=== PATIENT | female | born 1955 | race Two or more races ===

== ENCOUNTER 2020-10-19 17:49 | Outpatient (REF) | payer MEDICARE, BC, SELFPAY | END 2020-10-19 17:50 | disposition home or self-care (01) | LOC: HO.LNP 17:49 | PROVIDERS: Visit Provider Nurse Practitioner Family | DX: J02.9 Acute pharyngitis, unspecified (principal); Z20.828 Contact with and (suspected) exposure to other viral communicable diseases | CPT/HCPCS: U0003 ==

== ENCOUNTER 2021-08-04 09:30 | Outpatient (REF) | payer MEDICARE, BC, SELFPAY ==
[2021-08-04 11:38] LABS: Estimated Average Glucose 117 mg/dL; Hemoglobin A1c % 5.7 %
[2021-08-04 12:10] LABS: Alanine Aminotransferase 15 U/L (0-31); Albumin Level 4.3 g/dL (3.5-5.0); Alkaline Phosphatase 124 U/L (39-117); Anion Gap 11 (12-20); Aspartate Amino Transferase 20 U/L (5-31); Bilirubin Total 0.5 mg/dL (0.0-1.0); Blood Urea Nitrogen 11 mg/dL (9-16); Carbon Dioxide 26 mmol/L (22-29); Chloride 107 mmol/L (96-108); Cholesterol 178 mg/dL; Estimated Glomerular Filt Rate > 60; Glucose Fasting 96 mg/dL (60-99); HDL Cholesterol 46 mg/dL; LDL Cholesterol Calculated 108 mg/dl; Potassium 4.6 mmol/L (3.3-5.1); Sodium 139 mmol/L (135-145); Triglycerides 123 mg/dL
[2021-08-04 12:11] LABS: TSH reflex Free T4 1.04 uIU/mL (0.32-4.0)
[2021-08-04 12:29] LABS: Microalbum/Creatinine Ratio Ur 7.3 ug/mg cr
== END 2021-08-04 09:31 | disposition home or self-care (01) ==
LOC: HO.HMGCLDS 09:30
PROVIDERS: PCP Internal Medicine; Visit Provider Internal Medicine
DX: E03.9 Hypothyroidism, unspecified (principal); E78.5 Hyperlipidemia, unspecified; R73.9 Hyperglycemia, unspecified
CPT/HCPCS: 36415; 80053; 80061; 82043; 83036; 84443

== ENCOUNTER 2022-05-10 09:32 | Outpatient (REF) | payer MEDICARE, BC, SELFPAY ==
[2022-05-10 11:23] LABS: MANUAL DIFF FLAG NO
[2022-05-10 11:34] LABS: Basophils Absolute Auto 0.1 X10*3/uL (0.0-0.2); Basophils Percent Auto 0.9 % (0-2); Eosinophils Absolute Auto 0.2 X10*3/uL (0.0-0.4); Eosinophils Percent Auto 3.9 % (0-4); Hematocrit 34.2 % (37.0-47.0); Hemoglobin 11.5 g/dl (12.0-16.0); Imm Gran Abs Auto 0.01 X10*3/uL (0.00-0.03); Imm Gran Pct Auto 0.2 % (0.0-0.4); Immature Retic Fraction 19.1 % (3.0-15.9); Lymphocytes Percent Auto 37.1 % (20-40); Mean Corpuscular HGB Conc 33.6 g/dl (31.0-35.0); Mean Corpuscular Hemoglobin 29.7 pg (27.0-33.0); Mean Corpuscular Volume 88.4 fL (80.0-98.0); Mean Platelet Volume 10.7 fL (9.4-12.3); Monocytes Absolute Auto 0.5 X10*3/uL (0.1-1.2); Monocytes Percent Auto 10.1 % (2-11); Neutrophils Absolute Auto 2.5 x10*3/uL (2.0-8.3); Neutrophils Percent Auto 47.8 % (45-73); Platelet Count 241 X10*3/uL (160-400); Red Blood Count 3.87 X10*6/uL (4.20-5.50); Red Cell Distribution Width 13.7 % (11.0-16.0); Retic HGB Equivalent 32.4 pg (30.0-35.0); Reticulocyte Percent 1.3 % (0.5-1.8); Reticulocytes Absolute 0.052 X10*6/uL (0.026-0.095); White Blood Count 5.3 X10*3/uL (4.8-10.8)
[2022-05-10 12:00] LABS: Iron 68 mcg/dL (30-160); Percent Iron Saturation 20 % (15-50); Total Iron Binding Capacity 334 mcg/dL (228-428); Unsaturated Iron Binding 266 ug/dL
== END 2022-05-10 09:33 | disposition home or self-care (01) ==
LOC: HO.HMGCLDS 09:32
PROVIDERS: PCP Internal Medicine; Visit Provider Internal Medicine
DX: D64.9 Anemia, unspecified (principal)
CPT/HCPCS: 36415; 83540; 85025; 85045

== ENCOUNTER 2023-07-25 13:01 | Outpatient (REF) | payer MEDICARE, BC, SELFPAY | END 2023-07-25 13:02 | disposition home or self-care (01) | LOC: HO.MRI 13:01 | PROVIDERS: PCP Internal Medicine; Visit Provider Internal Medicine | DX: Z13.89 Encounter for screening for other disorder (principal) ==

== ENCOUNTER 2023-08-21 12:00 | Outpatient (AMB) | payer MEDICARE, BC, SELFPAY ==
[2023-08-21 12:06] VITALS: BP 126/70; PULSE 70; O2SAT 98; BMI 33.0
--- NOTE | 2023-08-21 12:06 | MHC.PC.OV ---
Vital Signs 08/21/23 12:06 Height 5 ft 3 in Weight 186 lb 6 oz BMI 33.0 BP 126/70 Blood Pressure Location Rt brachial Position Sitting Pulse 70 Pulse Source Pulse Oximeter Pulse Oximetry (%) 98 Oxygen Delivery Method Room Air Intake Visit Reasons: 3m follow up Intake Note: pt had labs and a Breast MRI at [facility] that are scanned in pt's chart Allergies dapagliflozin [From [facility]] Adverse Reaction (Intermediate, Verified 08/21/23 12:09) LIGHTHEADNESS Medication List - Last Reconciled 08/21/23 by Marielle Price MD albuterol sulfate 90 mcg/actuation (ProAir HFA) 2 puffs inhalation QID PRN atorvastatin 40 mg PO DAILY blood sugar diagnostic (FreeStyle Lite Strips) test blood sugar once a day blood-glucose meter (FreeStyle Lite Meter kit) As directed cholecalciferol (vitamin D3) 25 mcg PO DAILY citalopram 20 mg PO DAILY famotidine 40 mg PO BID flash glucose sensor (FreeStyle An 2 Sensor kit) As directed fluticasone propionate 110 mcg/actuation (Flovent HFA) 2 puffs inhalation BID lancets (FreeStyle Lancets) test blood sugar once a day levothyroxine (Synthroid) 75 mcg PO DAILY lorazepam 0.5 mg PO DAILY PRN lubiprostone 0 mcg PO melatonin 6 mg PO BEDTIME PRN mometasone 0.1% 1 appl topical DAILY omega-3 fatty acids (Fish Oil) PO omeprazole 40 mg PO BID semaglutide (Ozempic) 0.25 mg (0.368 mL) subcut QWEEK Tobacco use date assessed: 08/21/23 Fall risk assessment: No Falls in past year Last assessed Fall Risk: 08/21/23 Dental Screening Dental Screen Date: 08/21/23 Did you have a dental visit in the last 12 months?: Yes Did you have a dental problem in the last 6 months where you did not have access to dental care?: No Was dental information given to patient?: Patient has dentist HPI 3m follow up HPI Details Pt presents for f/u hyperlipid, DM 2, hypothyroid, stable on meds. Patient complains of insomnia and has been taking melatonin with some relief. She states zolpidem has not been helpful. Depression is stable on citalopram. Patient is leaving for [place] in the beginning of October for 6 months and she will go on a cruise in October to celebrate her 49th anniversary. [facility] Medical History Asthma Chronic depression Cough GERD (gastroesophageal reflux disease) History of mammogram Hyperglycemia Hyperlipidemia Hypothyroidism Neck pain Shoulder pain, bilateral Sleep apnea Surgical History Status post right knee replacement H/O colonoscopy History of esophagogastroduodenoscopy (EGD) No pertinent past surgical history Family History Mother Breast cancer Osteoporosis Social History Housing: House Alcohol intake: current Alcohol intake frequency: holidays/special occasions only Patient Tobacco Use Status: Never used Tobacco e-Cigarette/Vaping Use: Never Used Current occupational status: retired Cognitive needs: No Hearing needs: No Vision needs: Yes Questionnaire Thrive Questionnaire Date Thrive assessed: 05/25/23 ROSIE-7 AMB Questionnaire ROSIE-7 Date ROSIE - 7 assessed: 05/25/23 Source: Developed by Drs. Philip Rivas, Carri Rowley, Frank Aparicio and colleagues, with an educational marilia from [employer]. Review of Systems Const All systems reviewed & are unremarkable except as noted in HPI and below Reports no additional complaints Eyes Reports no additional complaints ENT Reports no additional complaints Card Reports no additional complaints Resp Reports no additional complaints GI Reports no additional complaints Reports no additional complaints Physical exam (Primary Care) Vital Signs: Last Vital Signs Pulse 70 08/21/23 12:06 BP 138/70 08/21/23 12:06 Pulse Ox 98 08/21/23 12:06 Oxygen Delivery Method Room Air 08/21/23 12:06 BMI result Body Mass Index 33.0 Tobacco/Smoking Status: Tobacco use Status Tobacco use date assessed 08/21/23 08/21/23 12:12 Patient Tobacco Use Status Never used Tobacco 08/21/23 12:07 e-Cigarette/Vaping Use Never Used 08/21/23 12:07 Thrive Assessment: Date of Thrive Assessment Date Thrive assessed 05/25/23 08/21/23 12:07 Const General: no acute distress HENMT Ears: hearing grossly normal bilaterally Mouth: Normal oral and palatal mucosa present Eyes General: appearance normal, both eyes and all related structures Neck Neck: Yes no lymphadenopathy and Yes supple Resp Effort & Inspection: normal respiratory effort Auscultation: clear to auscultation bilaterally Cardio Rhythm: regular rhythm Heart sounds: S1 normal heart sound present and S2 normal heart sound present GI Inspection: Yes normal to inspection Palpation (GI): Soft to palpation Percussion: Yes normal to percussion Auscultation: normal bowel sounds Assessment and Plan Assessment & Plan (1) Hx of breast lump: Comment: R breast 2 mm mass on MR 9/13, US ordered Code(s): Z87.898 - Personal history of other specified conditions Plan: right breast ultrasound at [facility] to be ordered to evaluate for the mass found on the MRI (2) DM type 2 (diabetes mellitus, type 2): Comment: Farxiga caused lightheadedness Code(s): E11.9 - Type 2 diabetes mellitus without complications Plan: A1c is 5.7, this insurance did not cover Ozempic. She will try Trulicity 0.75 mg weekly and increase as tolerated (3) Hypothyroidism: Code(s): E03.9 - Hypothyroidism, unspecified Plan: Continue levothyroxine (4) GERD (gastroesophageal reflux disease): Code(s): K21.9 - Gastro-esophageal reflux disease without esophagitis Plan: Continue PPI (5) Asthma: Code(s): J45.909 - Unspecified asthma, uncomplicated Plan: Continue Flovent (6) Insomnia: Comment: Zolpidem not affective Code(s): G47.00 - Insomnia, unspecified Plan: Sleep hygiene discussed with the patient. Trazodone 50 mg q.h.s. is prescribed to take on as needed basis only. Orders: Orders US breast RT complete Today Z87.898 - Personal history of other specified conditions Comprehensive [place]. Panel Fast 7 Months E03.9 - Hypothyroidism, unspecified, E11.9 - Type 2 diabetes mellitus without complications, K21.9 - Gastro-esophageal reflux disease without esophagitis, R73.9 - Hyperglycemia, unspecified, Z00.00 - Encounter for general adult medical examination without abnormal findings Complete Blood Count Auto Diff 7 Months E03.9 - Hypothyroidism, unspecified, E11.9 - Type 2 diabetes mellitus without complications, K21.9 - Gastro-esophageal reflux disease without esophagitis, R73.9 - Hyperglycemia, unspecified, Z00.00 - Encounter for general adult medical examination without abnormal findings Hemoglobin A1c 7 Months E03.9 - Hypothyroidism, unspecified, E11.9 - Type 2 diabetes mellitus without complications, K21.9 - Gastro-esophageal reflux disease without esophagitis, R73.9 - Hyperglycemia, unspecified, Z00.00 - Encounter for general adult medical examination without abnormal findings Lipid Panel 7 Months E03.9 - Hypothyroidism, unspecified, E11.9 - Type 2 diabetes mellitus without complications, K21.9 - Gastro-esophageal reflux disease without esophagitis, R73.9 - Hyperglycemia, unspecified, Z00.00 - Encounter for general adult medical examination without abnormal findings Microalbumin, Random (w Creat) 7 Months E03.9 - Hypothyroidism, unspecified, E11.9 - Type 2 diabetes mellitus without complications, K21.9 - Gastro-esophageal reflux disease without esophagitis, R73.9 - Hyperglycemia, unspecified, Z00.00 - Encounter for general adult medical examination without abnormal findings TSH reflex Free T4 7 Months E03.9 - Hypothyroidism, unspecified, E11.9 - Type 2 diabetes mellitus without complications, K21.9 - Gastro-esophageal reflux disease without esophagitis, R73.9 - Hyperglycemia, unspecified, Z00.00 - Encounter for general adult medical examination without abnormal findings Medications: New dulaglutide (Trulicity) 0.75 mg (0.5 mL) subcut QWEEK 4 mL 3RF trazodone 50 mg PO BEDTIME PRN 30 tabs 1RF sleep Discontinued semaglutide (Ozempic) for 4 weeks then 0.5 mg qd Discontinued Reason: Duplicate 0.25 mg (0.368 mL) subcut QWEEK 3 mL 2RF Coding Level of Care Code Est Pt Level 4 (10402) Diagnoses Hx of breast lump Z87.898 DM type 2 (diabetes mellitus, type 2) E11.9 Hypothyroidism E03.9 GERD (gastroesophageal reflux disease) K21.9 Asthma J45.909 Insomnia G47.00
== END 2023-08-21 12:48 | disposition home or self-care (01) ==
PROVIDERS: PCP Internal Medicine; Visit Provider Internal Medicine
DX: Z87.898 Personal history of other specified conditions (principal); E11.9 Type 2 diabetes mellitus without complications; E03.9 Hypothyroidism, unspecified; K21.9 Gastro-esophageal reflux disease without esophagitis; J45.909 Unspecified asthma, uncomplicated; G47.00 Insomnia, unspecified
CPT/HCPCS: 99214

== ENCOUNTER 2024-02-26 11:58 | Outpatient (AMB) | payer MEDICARE, BC, SELFPAY ==
[2024-02-26 12:05] VITALS: BP 112/66; PULSE 74; O2SAT 98; BMI 32.2
--- NOTE | 2024-02-26 12:05 | MHC.PC.OV ---
Vital Signs 02/26/24 12:05 Height 5 ft 3 in Weight 182 lb BMI 32.2 BP 112/66 Blood Pressure Location Rt brachial Position Sitting Pulse 74 Pulse Source Pulse Oximeter Pulse Oximetry (%) 98 Oxygen Delivery Method Room Air Intake Visit Reasons: Dizziness/vertigo Intake Note: Pt is here today for a sick visit. Pt c/o dizzy spells. Allergies dapagliflozin [From Farxiga] Adverse Reaction (Verified 02/26/24 12:44) candidasis metformin Adverse Reaction (Verified 02/26/24 12:45) Abdominal Pain Medication List - Last Reconciled 02/26/24 by Marielle Price MD albuterol sulfate 90 mcg/actuation (ProAir HFA) 2 puffs inhalation QID PRN baclofen 10 mg PO BID blood sugar diagnostic (FreeStyle Lite Strips) test blood sugar once a day blood-glucose meter (FreeStyle Lite Meter kit) As directed cholecalciferol (vitamin D3) 25 mcg PO DAILY citalopram 20 mg PO DAILY dapagliflozin propanediol (Farxiga) 5 mg PO DAILY famotidine 40 mg PO BID flash glucose sensor ([place] An 2 Sensor kit) As directed fluticasone propionate 110 mcg/actuation (Flovent HFA) 2 puffs inhalation BID lancets (FreeStyle Lancets) test blood sugar once a day levothyroxine (Synthroid) 75 mcg PO DAILY lorazepam 0.5 mg PO DAILY PRN melatonin 6 mg PO BEDTIME PRN mometasone 0.1% 1 appl topical DAILY omega-3 fatty acids (Fish Oil) PO omeprazole 40 mg PO BID rosuvastatin 40 mg PO DAILY Tobacco use date assessed: 02/26/24 Fall risk assessment: No Falls in past year Last assessed Fall Risk: 02/26/24 Dental Screening Dental Screen Date: 02/26/24 Did you have a dental visit in the last 12 months?: Yes Did you have a dental problem in the last 6 months where you did not have access to dental care?: No Was dental information given to patient?: Patient has dentist HPI Dizziness/vertigo HPI Details Pt presents for f/u hyperlipid, DM 2, hypothyroid, stable on meds. Patient came back from [place]. She developed episode dizziness and decreased hearing in the right ear and was diagnosed with cochlear hydrops by ENT. [facility] Medical History Asthma Cough Shoulder pain, bilateral Neck pain Hyperglycemia History of mammogram Sleep apnea GERD (gastroesophageal reflux disease) Chronic depression Hypothyroidism Hyperlipidemia Surgical History Status post right knee replacement H/O colonoscopy History of esophagogastroduodenoscopy (EGD) No pertinent past surgical history Family History Mother Breast cancer Osteoporosis Social History Housing: House Alcohol intake: current Alcohol intake frequency: holidays/special occasions only Patient Tobacco Use Status: Never used Tobacco e-Cigarette/Vaping Use: Never Used service: No Current occupational status: retired Cognitive needs: No Hearing needs: No Vision needs: Yes Questionnaire Thrive Questionnaire Date Thrive assessed: 05/25/23 AUDIT C Alcohol Use Questionnaire (AUDIT-C) 1. How often do you have a drink containing alcohol?: Never 3. How often do you have six or more drinks on one occasion?: Never Total Score: 0 ROSIE-7 AMB Questionnaire ROSIE-7 Date ROSIE - 7 assessed: 05/25/23 Source: Developed by Drs. Philip Rivas, Carri Rowley, Frank Aparicio and colleagues, with an educational marilia from [employer]. Review of Systems Const All systems reviewed & are unremarkable except as noted in HPI and below Reports no additional complaints Eyes Reports no additional complaints ENT Reports no additional complaints Card Reports no additional complaints Resp Reports no additional complaints GI Reports no additional complaints Reports no additional complaints Physical exam (Primary Care) Vital Signs: Last Vital Signs Pulse 74 02/26/24 12:05 BP 112/66 02/26/24 12:05 Pulse Ox 98 02/26/24 12:05 Oxygen Delivery Method Room Air 02/26/24 12:05 BMI result Body Mass Index 32.2 Tobacco/Smoking Status: Tobacco use Status Tobacco use date assessed 02/26/24 02/26/24 12:16 Patient Tobacco Use Status Never used Tobacco 02/26/24 12:16 e-Cigarette/Vaping Use Never Used 02/26/24 12:05 Thrive Assessment: Date of Thrive Assessment Date Thrive assessed 05/25/23 02/26/24 12:05 Const General: no acute distress HENMT Face and sinus: Yes normal facial exam Eyes General: appearance normal, both eyes and all related structures Resp Effort & Inspection: normal respiratory effort Auscultation: clear to auscultation bilaterally Cardio Rhythm: regular rhythm Heart sounds: S1 normal heart sound present and S2 normal heart sound present GI Inspection: Yes normal to inspection Palpation (GI): Soft to palpation Percussion: Yes normal to percussion Auscultation: normal bowel sounds Assessment and Plan Assessment & Plan (1) DM type 2 (diabetes mellitus, type 2): Comment: Farxiga caused lightheadedness, frequent candidasis, Code(s): E11.9 - Type 2 diabetes mellitus without complications Plan: PATIENT REPORTS RECURRENT CANDIDIASIS WHILE ON FARXIGA. SHE WAS ADVISED TO STOP FARXIGA AND WILL START OZEMPIC AFTER FASTING BLOOD WORK (2) Cochlear hydrops of right ear: Comment: f/u ENT Dr. Somers Code(s): H81.01 - Meniere's disease, right ear Plan: Follow-up with ENT (3) Hyperlipidemia: Code(s): E78.5 - Hyperlipidemia, unspecified Plan: Continue statin (4) Hypothyroidism: Code(s): E03.9 - Hypothyroidism, unspecified Plan: Continue levothyroxine follow-up in 3 months with a fasting labs before Orders: Orders Comprehensive [place]. Panel Fast Today E03.9 - Hypothyroidism, unspecified, E11.9 - Type 2 diabetes mellitus without complications, E78.5 - Hyperlipidemia, unspecified, H81.01 - Meniere's disease, right ear Lipid Panel Today E03.9 - Hypothyroidism, unspecified, E11.9 - Type 2 diabetes mellitus without complications, E78.5 - Hyperlipidemia, unspecified, H81.01 - Meniere's disease, right ear Microalbumin, Random (w Creat) Today E03.9 - Hypothyroidism, unspecified, E11.9 - Type 2 diabetes mellitus without complications, E78.5 - Hyperlipidemia, unspecified, H81.01 - Meniere's disease, right ear Comprehensive [place]. Panel Fast 3 Months E11.9 - Type 2 diabetes mellitus without complications Lipid Panel 3 Months E11.9 - Type 2 diabetes mellitus without complications Hemoglobin A1c Today E03.9 - Hypothyroidism, unspecified, E11.9 - Type 2 diabetes mellitus without complications, E78.5 - Hyperlipidemia, unspecified, H81.01 - Meniere's disease, right ear Complete Blood Count Auto Diff Today E03.9 - Hypothyroidism, unspecified, E11.9 - Type 2 diabetes mellitus without complications, E78.5 - Hyperlipidemia, unspecified, H81.01 - Meniere's disease, right ear TSH reflex Free T4 Today E03.9 - Hypothyroidism, unspecified, E11.9 - Type 2 diabetes mellitus without complications, E78.5 - Hyperlipidemia, unspecified, H81.01 - Meniere's disease, right ear Hemoglobin A1c 3 Months E11.9 - Type 2 diabetes mellitus without complications Coding Level of Care Code Est Pt Level 4 (31070) Diagnoses DM type 2 (diabetes mellitus, type 2) E11.9 Cochlear hydrops of right ear H81.01 Hyperlipidemia E78.5 Hypothyroidism E03.9
== END 2024-02-26 15:22 | disposition home or self-care (01) ==
PROVIDERS: PCP Internal Medicine; Visit Provider Internal Medicine
DX: E11.9 Type 2 diabetes mellitus without complications (principal); H81.01 Meniere's disease, right ear; E78.5 Hyperlipidemia, unspecified; E03.9 Hypothyroidism, unspecified
CPT/HCPCS: 99214

== ENCOUNTER 2024-03-19 09:35 | Outpatient (REF) | payer MEDICARE, BC, SELFPAY ==
[2024-03-19 13:03] LABS: MANUAL DIFF FLAG NO
[2024-03-19 13:07] LABS: Basophils Percent Auto 0.7 % (0-2); Eosinophils Absolute Auto 0.2 X10*3/uL (0.0-0.4); Eosinophils Percent Auto 4.4 % (0-4); Hematocrit 36.4 % (37.0-47.0); Hemoglobin 12.2 g/dl (12.0-16.0); Imm Gran Abs Auto 0.01 X10*3/uL (0.00-0.03); Imm Gran Pct Auto 0.2 % (0.0-0.4); Lymphocytes Absolute Auto 1.8 X10*3/uL (1.2-4.9); Mean Corpuscular HGB Conc 33.5 g/dl (31.0-35.0); Mean Corpuscular Volume 86.5 fL (80.0-98.0); Mean Platelet Volume 10.3 fL (9.4-12.3); Monocytes Absolute Auto 0.5 X10*3/uL (0.1-1.2); Monocytes Percent Auto 10.4 % (2-11); Neutrophils Percent Auto 44.3 % (45-73); Platelet Count 245 X10*3/uL (160-400); Red Blood Count 4.21 X10*6/uL (4.20-5.50); Red Cell Distribution Width 12.9 % (11.0-16.0); White Blood Count 4.5 X10*3/uL (4.8-10.8)
[2024-03-19 13:16] LABS: Estimated Average Glucose 126 mg/dL
[2024-03-19 13:38] LABS: Creatinine Urine 93.53 mg/dL; Microalbum/Creatinine Ratio Ur 14.9 ug/mg cr (<30)
[2024-03-19 14:00] LABS: Alanine Aminotransferase 21 U/L (0-31); Albumin Level 4.4 g/dL (3.5-5.0); Alkaline Phosphatase 87 U/L (39-117); Anion Gap 13 (12-20); Aspartate Amino Transferase 25 U/L (5-31); Bilirubin Total 0.3 mg/dL (0.0-1.0); Blood Urea Nitrogen 15 mg/dL (9-16); Calcium 9.4 mg/dL (8.4-10.2); Carbon Dioxide 29 mmol/L (22-29); Chloride 100 mmol/L (96-108); Cholesterol 157 mg/dL (<200); Estimated Glomerular Filt Rate > 60; Glucose Fasting 113 mg/dL (60-99); HDL Cholesterol 42 mg/dL (>40); LDL Cholesterol Calculated 91 mg/dL (<100); Potassium 3.3 mmol/L (3.3-5.1); Sodium 139 mmol/L (135-145); Total Protein 7.4 g/dL (6.5-8.0); Triglycerides 123 mg/dL (<150)
[2024-03-19 14:15] LABS: TSH reflex Free T4 0.45 uIU/mL (0.32-4.0)
== END 2024-03-19 09:36 | disposition home or self-care (01) ==
LOC: HO.HMGCLDS 09:35
PROVIDERS: PCP Internal Medicine; Visit Provider Internal Medicine
DX: E11.9 Type 2 diabetes mellitus without complications (principal); Z00.00 Encounter for general adult medical examination without abnormal findings; R73.9 Hyperglycemia, unspecified; E03.9 Hypothyroidism, unspecified; K21.9 Gastro-esophageal reflux disease without esophagitis
CPT/HCPCS: 36415; 80053; 80061; 82043; 82570; 83036; 84443; 85025

== ENCOUNTER 2024-03-21 11:17 | Outpatient (AMB) | payer MEDICARE, BC, SELFPAY ==
[2024-03-21 11:27] VITALS: BP 110/66; PULSE 80; O2SAT 98; BMI 32.4
--- NOTE | 2024-03-21 11:27 | A.OFFPC_ITS ---
Vital Signs 03/21/24 11:27 Height 5 ft 3 in Intake Visit Reasons: SWV [id number] Allergies dapagliflozin [From Farxiga] Adverse Reaction (Verified 02/26/24 12:44) candidasis metformin Adverse Reaction (Verified 02/26/24 12:45) Abdominal Pain Tobacco use date assessed: 02/26/24 Dental Screening Dental Screen Date: 02/26/24 PFSH Medical History Asthma Cough Shoulder pain, bilateral Neck pain Hyperglycemia History of mammogram Sleep apnea GERD (gastroesophageal reflux disease) Chronic depression Hypothyroidism Hyperlipidemia Surgical History Status post right knee replacement H/O colonoscopy History of esophagogastroduodenoscopy (EGD) No pertinent past surgical history Family History Mother Breast cancer Osteoporosis Social History Housing: House Alcohol intake: current Alcohol intake frequency: holidays/special occasions only Patient Tobacco Use Status: Never used Tobacco e-Cigarette/Vaping Use: Never Used service: No Current occupational status: retired Cognitive needs: No Hearing needs: No Vision needs: Yes Questionnaire Thrive Questionnaire Date Thrive assessed: 05/25/23 ROSIE-7 AMB Questionnaire ROSIE-7 Date ROSIE - 7 assessed: 05/25/23 Source: Developed by Drs. Philip Rivas, Carri Rowley, Frank Aparicio and colleagues, with an educational marilia from [employer]. Physical exam (Primary Care) Tobacco/Smoking Status: Tobacco use Status Tobacco use date assessed 02/26/24 02/26/24 12:16 Patient Tobacco Use Status Never used Tobacco 02/26/24 12:16 e-Cigarette/Vaping Use Never Used 02/26/24 12:05 Thrive Assessment: Date of Thrive Assessment Date Thrive assessed 05/25/23 02/26/24 12:05 Coding
--- NOTE | 2024-03-21 11:41 | MHC.PC.OV ---
Vital Signs 03/21/24 11:27 Height 5 ft 3 in Weight 183 lb BMI 32.4 BP 110/66 Blood Pressure Location Rt brachial Position Sitting Pulse 80 Pulse Source Pulse Oximeter Pulse Oximetry (%) 98 Oxygen Delivery Method Room Air Intake Visit Reasons: Follow up on new med and labs. Allergies dapagliflozin [From Farxiga] Adverse Reaction (Verified 03/21/24 11:43) candidasis metformin Adverse Reaction (Verified 03/21/24 11:43) Abdominal Pain Medication List - Last Reconciled 03/21/24 by Marielle Price MD albuterol sulfate 90 mcg/actuation (ProAir HFA) 2 puffs inhalation QID PRN baclofen 10 mg PO BID blood sugar diagnostic (FreeStyle Lite Strips) test blood sugar once a day blood-glucose meter (FreeStyle Lite Meter kit) As directed cholecalciferol (vitamin D3) 25 mcg PO DAILY citalopram 20 mg PO DAILY dapagliflozin propanediol (Farxiga) 5 mg PO DAILY famotidine 40 mg PO BID flash glucose sensor (PryvStyle An 2 Sensor kit) As directed fluticasone propionate 110 mcg/actuation (Flovent HFA) 2 puffs inhalation BID lancets (FreeStyle Lancets) test blood sugar once a day levothyroxine (Synthroid) 75 mcg PO DAILY lorazepam 0.5 mg PO DAILY PRN melatonin 6 mg PO BEDTIME PRN mometasone 0.1% 1 appl topical DAILY omega-3 fatty acids (Fish Oil) PO omeprazole 40 mg PO BID rosuvastatin 40 mg PO DAILY scopolamine base 1 patch transdermal Q3D PRN triamterene-hydrochlorothiazid 37.5-25 mg 1 tab PO DAILY Tobacco use date assessed: 02/26/24 Dental Screening Dental Screen Date: 02/26/24 HPI Follow up on new med and labs. HPI Details Patient presents for the follow-up on hyperlipidemia hypothyroidism hyperglycemia. Patient has stopped Farxiga and her recurrent yeast infection resolved. She has been following ADA diet checking her blood glucose regularly with readings as high as over 200 2 hours after dinner. Patient could not tolerate metformin which caused abdominal pain nausea and vomiting. She has been exercising regularly and trying to lose weight for at least 6 months. Patient complains of persistent vertigo and tried triamterene with hydrochlorothiazide as recommended by ENT without significant improvement. [facility] Medical History Asthma Cough Shoulder pain, bilateral Neck pain Hyperglycemia History of mammogram Sleep apnea GERD (gastroesophageal reflux disease) Chronic depression Hypothyroidism Hyperlipidemia Surgical History Status post right knee replacement H/O colonoscopy History of esophagogastroduodenoscopy (EGD) No pertinent past surgical history Family History Mother Breast cancer Osteoporosis Social History Housing: House Alcohol intake: current Alcohol intake frequency: holidays/special occasions only Patient Tobacco Use Status: Never used Tobacco e-Cigarette/Vaping Use: Never Used service: No Current occupational status: retired Cognitive needs: No Hearing needs: No Vision needs: Yes Questionnaire Thrive Questionnaire Date Thrive assessed: 05/25/23 ROSIE-7 AMB Questionnaire ROSIE-7 Date ROSIE - 7 assessed: 05/25/23 Source: Developed by Drs. Philip Rivas, Carri Rowley, Frank Aparicio and colleagues, with an educational marilia from [employer]. Review of Systems Const All systems reviewed & are unremarkable except as noted in HPI and below Reports no additional complaints Eyes Reports no additional complaints ENT Reports no additional complaints Card Reports no additional complaints Resp Reports no additional complaints GI Reports no additional complaints Reports no additional complaints Physical exam (Primary Care) Vital Signs: Last Vital Signs Pulse 80 03/21/24 11:27 BP 110/66 03/21/24 11:27 Pulse Ox 98 03/21/24 11:27 Oxygen Delivery Method Room Air 03/21/24 11:27 BMI result Body Mass Index 32.4 Tobacco/Smoking Status: Tobacco use Status Tobacco use date assessed 02/26/24 03/21/24 11:45 Patient Tobacco Use Status Never used Tobacco 03/21/24 11:45 e-Cigarette/Vaping Use Never Used 03/21/24 11:45 Thrive Assessment: Date of Thrive Assessment Date Thrive assessed 05/25/23 03/21/24 11:45 Const General: no acute distress HENMT Head: Yes normal to inspection Face and sinus: Yes normal facial exam Mouth: Normal oral and palatal mucosa present Throat: Yes posterior oropharynx normal Eyes General: appearance normal, both eyes and all related structures Resp Effort & Inspection: normal respiratory effort Auscultation: clear to auscultation bilaterally Cardio Rhythm: regular rhythm Heart sounds: S1 normal heart sound present and S2 normal heart sound present GI Inspection: Yes normal to inspection Palpation (GI): Soft to palpation Percussion: Yes normal to percussion Auscultation: normal bowel sounds Neuro Cranial nerves: Yes CN's II-XII intact bilaterally Motor exam (neuro): 5/5 motor strength present throughout and Pronator motor function not present Romberg Test: Positive Extrem General: Yes no clubbing, cyanosis or edema Assessment and Plan Assessment & Plan (1) Vertigo: Code(s): R42 - Dizziness and giddiness Plan: Obtain brain MRI to rule out cerebellar process, referred to PT for vestibular therapy (2) Hyperlipidemia: Code(s): E78.5 - Hyperlipidemia, unspecified Plan: Continue statin (3) Hypothyroidism: Code(s): E03.9 - Hypothyroidism, unspecified Plan: Continue Levothyroxine, (4) Hyperglycemia: Code(s): R73.9 - Hyperglycemia, unspecified Plan: A1c is up to 6.0, ADA diet increase exercise weight loss discussed with the patient she will try Mounjaro 2.5 mg weekly and will follow-up in 3 months with a fasting labs before Orders: Orders PT Evaluation and Treatment Today R42 - Dizziness and giddiness Comprehensive [place]. Panel Fast 3 Months E03.9 - Hypothyroidism, unspecified, E78.5 - Hyperlipidemia, unspecified, R73.9 - Hyperglycemia, unspecified Hemoglobin A1c 3 Months E03.9 - Hypothyroidism, unspecified, E78.5 - Hyperlipidemia, unspecified, R73.9 - Hyperglycemia, unspecified Lipid Panel 3 Months E03.9 - Hypothyroidism, unspecified, E78.5 - Hyperlipidemia, unspecified, R73.9 - Hyperglycemia, unspecified MR head/brain wo con Today H81.4 - Vertigo of central origin, R29.818 - Other symptoms and signs involving the nervous system Microalbumin, Random (w Creat) 3 Months E03.9 - Hypothyroidism, unspecified, E78.5 - Hyperlipidemia, unspecified, R73.9 - Hyperglycemia, unspecified Complete Blood Count Auto Diff 3 Months E03.9 - Hypothyroidism, unspecified, E78.5 - Hyperlipidemia, unspecified, R73.9 - Hyperglycemia, unspecified Medications: New tirzepatide (Mounjaro) 2.5 mg (0.5 mL) subcut QWEEK 4 weeks 2 mL 0RF Coding Level of Care Code Est Pt Level 4 (34864) Diagnoses Vertigo R42 Hyperlipidemia E78.5 Hypothyroidism E03.9 Hyperglycemia R73.9
== END 2024-03-21 12:07 | disposition home or self-care (01) ==
PROVIDERS: Visit Provider Internal Medicine
DX: R42 Dizziness and giddiness (principal); E78.5 Hyperlipidemia, unspecified; E03.9 Hypothyroidism, unspecified; R73.9 Hyperglycemia, unspecified
CPT/HCPCS: 99214

== ENCOUNTER 2024-06-24 13:05 | Outpatient (AMB) | payer MEDICARE, BC, SELFPAY ==
[2024-06-24 13:24] VITALS: BP 136/80; PULSE 81; O2SAT 98; BMI 33.1
--- NOTE | 2024-06-24 13:24 | MHC.PC.OV ---
Vital Signs 06/24/24 13:24 Height 5 ft 3 in Weight 187 lb BMI 33.1 BP 136/80 Blood Pressure Location Lt brachial Position Sitting Pulse 81 Pulse Source Pulse Oximeter Pulse Oximetry (%) 98 Oxygen Delivery Method Room Air Intake Visit Reasons: 3M F/U Intake Note: Pt is here today for 3 months follow up visit. Allergies dapagliflozin [From [facility]] Adverse Reaction (Verified 06/24/24 13:41) candidasis metformin Adverse Reaction (Verified 06/24/24 13:41) Abdominal Pain Medication List - Last Reconciled 06/24/24 by Marielle Price MD albuterol sulfate 90 mcg/actuation (ProAir HFA) 2 puffs inhalation QID PRN atorvastatin 40 mg PO BEDTIME baclofen 10 mg PO BID blood sugar diagnostic (FreeStyle Lite Strips) test blood sugar once a day blood-glucose meter (FreeStyle Lite Meter kit) As directed celecoxib 200 mg PO DAILY cholecalciferol (vitamin D3) 25 mcg PO DAILY citalopram 20 mg PO DAILY CPAP (CPAP Machine/Device) Pressure -10cm of H2O Nasal pillows and all needed supplies diclofenac sodium 1% (Voltaren Arthritis Pain) 2 grams topical QID famotidine 40 mg PO BID flash glucose sensor (FreeStyle An 2 Sensor kit) As directed fluticasone propionate 110 mcg/actuation 2 puffs inhalation BID lancets (FreeStyle Lancets) test blood sugar once a day levothyroxine (Synthroid) 75 mcg PO DAILY lorazepam 0.5 mg PO DAILY PRN melatonin 6 mg PO BEDTIME PRN mometasone 0.1% 1 appl topical DAILY omega-3 fatty acids (Fish Oil) PO omeprazole 40 mg PO BID Ozempic (semaglutide) 0.25 mg (0.368 mL) subcut QWEEK NS rosuvastatin 40 mg PO DAILY scopolamine base 1 patch transdermal Q3D PRN tirzepatide (Mounjaro) 2.5 mg (0.5 mL) subcut QWEEK triamterene-hydrochlorothiazid 37.5-25 mg 1 tab PO DAILY zolpidem 5 mg PO BEDTIME PRN Tobacco use date assessed: 06/24/24 Dental Screening Dental Screen Date: 02/26/24 HPI 3M F/U HPI Details Pt presents for f/u HTN, hyperlipid, DM 2, stable on meds. Patient took Mounjaro for three months but now is waiting for the shipment of Alexandraic from [place]. Pt f/u with health plan advisor for plantar fasciitis. FOR[facility] Medical History Asthma Cough Shoulder pain, bilateral Neck pain Hyperglycemia History of mammogram Sleep apnea GERD (gastroesophageal reflux disease) Chronic depression Hypothyroidism Hyperlipidemia Surgical History Status post right knee replacement H/O colonoscopy History of esophagogastroduodenoscopy (EGD) No pertinent past surgical history Family History Mother Breast cancer Osteoporosis Social History Housing: House Alcohol intake: current Alcohol intake frequency: holidays/special occasions only Patient Tobacco Use Status: Never used Tobacco e-Cigarette/Vaping Use: Never Used service: No Current occupational status: retired Cognitive needs: No Hearing needs: No Vision needs: Yes Questionnaire PHQ-9 Over the last 2 weeks, how often have you been bothered by any of the following problems? 1. Little interest or pleasure in doing things: not at all 2. Feeling down, depressed, or hopeless: not at all 3. Trouble falling or staying asleep, or sleeping too much: not at all 4. Feeling tired or having little energy: not at all 5. Poor appetite or overeating: not at all 6. Feeling bad about yourself - or that you are a failure or have let yourself or your family down: not at all 7. Trouble concentrating on things, such as reading the newspaper or watching television: not at all 8. Moving or speaking so slowly that other people could have noticed. Or the opposite - being so fidgety or restless that you have been moving around a lot more than usual: not at all 9. Thoughts that you would be better off or of hurting yourself in some way: not at all Total score: 0 Depression Screening Interpretation: Negative Depression Screening Done: Yes Source: Developed by Drs. Philip Rivas, CarriFrank Perez and colleagues, with an educational marilia from [employer]. Thrive Questionnaire Date Thrive assessed: 06/24/24 I am a: Patient What is your living situation today?: I have a steady place to live Within the past 12 months, did the food you bought not last and you didn't have the money to get more?: Never true Within the past 12 months, did you worry whether your food would run out before you got money to buy more?: Never true Do you have trouble paying for medicines?: No Do you have trouble getting transportation to medical appointments?: No Do you have trouble paying your heating and electricity bill?: No Do you have trouble taking care of your child, family member or friend?: No Do you have trouble with day-to-day activities such as bathing, preparing meals, shopping, managing finances, etc.?: No Are you currently unemployed and looking for a job?: No Are you interested in more education?: No Please select the resources that you would like help with: None THRIVE Score: 0 AUDIT C Alcohol Use Questionnaire (AUDIT-C) 1. How often do you have a drink containing alcohol?: Never 3. How often do you have six or more drinks on one occasion?: Never Total Score: 0 ROSIE-7 AMB Questionnaire ROSIE-7 Date ROSIE - 7 assessed: 06/24/24 Feeling nervous, anxious, or on edge: 0 = Not at all Not being able to stop or control worryin = Not at all Worrying too much about different things: 0 = Not at all Trouble relaxin = Not at all Being so restless that it is hard to sit still: 0 = Not at all Becoming easily annoyed or irritable: 0 = Not at all Feeling afraid as if something awful might happen: 0 = Not at all Total ROSIE-7 score (0-4 normal; 5-9 mild; 10-14 moderate; 15-21 severe): 0 Source: Developed by Drs. Philip Rivas, Frank Raman and colleagues, with an educational marilia from [employer]. Review of Systems Const All systems reviewed & are unremarkable except as noted in HPI and below Reports no additional complaints Eyes Reports no additional complaints ENT Reports no additional complaints Card Reports no additional complaints Resp Reports no additional complaints GI Reports no additional complaints Physical exam (Primary Care) Vital Signs: Last Vital Signs Pulse 81 06/24/24 13:24 BP 136/80 06/24/24 13:24 Pulse Ox 98 06/24/24 13:24 Oxygen Delivery Method Room Air 06/24/24 13:24 BMI result Body Mass Index 33.1 Tobacco/Smoking Status: Tobacco use Status Tobacco use date assessed 06/24/24 06/24/24 13:48 Patient Tobacco Use Status Never used Tobacco 06/24/24 13:25 e-Cigarette/Vaping Use Never Used 06/24/24 13:25 PHQ-9: PHQ-9 Score PHQ-9: Total score 0 06/24/24 13:48 Depression Screening Interpretation: Negative Thrive Assessment: Date of Thrive Assessment Date Thrive assessed 06/24/24 06/24/24 13:48 Const General: no acute distress HENMT Head: Yes normal to inspection Mouth: Normal oral and palatal mucosa present Eyes General: appearance normal, both eyes and all related structures Neck Neck: Yes no lymphadenopathy and Yes supple Resp Effort & Inspection: normal respiratory effort Auscultation: clear to auscultation bilaterally Cardio Rhythm: regular rhythm Heart sounds: S1 normal heart sound present and S2 normal heart sound present GI Inspection: Yes normal to inspection Palpation (GI): Soft to palpation Percussion: Yes normal to percussion Auscultation: normal bowel sounds Assessment and Plan Assessment & Plan (1) DM type 2 (diabetes mellitus, type 2): Comment: Farxiga caused lightheadedness, frequent candidasis, Code(s): E11.9 - Type 2 diabetes mellitus without complications Plan: A1c was 6.0 in March. ADA diet increase physical activity weight loss discussed with the patient. She is planning to start Ozempic 0.25 mg weekly for the 1st month then increase to 0.5 mg weekly. Patient will follow-up in 3 months with a fasting labs before (2) Chronic depression: Code(s): F32.9 - Major depressive disorder, single episode, unspecified Plan: Controlled on citalopram (3) Hypothyroidism: Code(s): E03.9 - Hypothyroidism, unspecified Plan: Continue levothyroxine (4) Hyperlipidemia: Code(s): E78.5 - Hyperlipidemia, unspecified Plan: Continue statin (5) Vertigo: Comment: Diagnosed with Meniere's disease by ENT Code(s): R42 - Dizziness and giddiness Plan: Follow-up with ENT Orders: Orders Comprehensive [place]. Panel Fast 3 Months E03.9 - Hypothyroidism, unspecified, E11.9 - Type 2 diabetes mellitus without complications, E78.5 - Hyperlipidemia, unspecified Complete Blood Count Auto Diff 3 Months E03.9 - Hypothyroidism, unspecified, E11.9 - Type 2 diabetes mellitus without complications, E78.5 - Hyperlipidemia, unspecified Microalbumin, Random (w Creat) 3 Months E03.9 - Hypothyroidism, unspecified, E11.9 - Type 2 diabetes mellitus without complications, E78.5 - Hyperlipidemia, unspecified TSH reflex Free T4 3 Months E03.9 - Hypothyroidism, unspecified, E11.9 - Type 2 diabetes mellitus without complications, E78.5 - Hyperlipidemia, unspecified Lipid Panel 3 Months E03.9 - Hypothyroidism, unspecified, E11.9 - Type 2 diabetes mellitus without complications, E78.5 - Hyperlipidemia, unspecified Hemoglobin A1c 3 Months E03.9 - Hypothyroidism, unspecified, E11.9 - Type 2 diabetes mellitus without complications, E78.5 - Hyperlipidemia, unspecified Medications: Discontinued tirzepatide (Mounjaro) Discontinued Reason: Doctor's Order 2.5 mg (0.5 mL) subcut QWEEK 6 mL 1RF E11.9 - Type 2 diabetes mellitus without complications lorazepam Discontinued Reason: Doctor's Order 0.5 mg PO DAILY PRN 10 tabs 0RF anxiety baclofen Discontinued Reason: Doctor's Order 10 mg PO BID 30 tabs 0RF Coding Level of Care Code Est Pt Level 4 (75175) Diagnoses DM type 2 (diabetes mellitus, type 2) E11.9 Chronic depression F32.9 Hypothyroidism E03.9 Hyperlipidemia E78.5 Vertigo R42
== END 2024-06-24 14:10 | disposition home or self-care (01) ==
LOC: HO.HMGC 13:05
PROVIDERS: PCP Internal Medicine; Visit Provider Internal Medicine
DX: E11.9 Type 2 diabetes mellitus without complications (principal); F32.9 Major depressive disorder, single episode, unspecified; E03.9 Hypothyroidism, unspecified; E78.5 Hyperlipidemia, unspecified; R42 Dizziness and giddiness
CPT/HCPCS: 99214

== ENCOUNTER 2024-09-26 10:03 | Outpatient (REF) | payer MEDICARE, BC, SELFPAY ==
[2024-09-26 13:14] LABS: MANUAL DIFF FLAG NO
[2024-09-26 13:15] LABS: Basophils Percent Auto 0.6 % (0-2); Eosinophils Absolute Auto 0.2 X10*3/uL (0.0-0.4); Hematocrit 36.2 % (37.0-47.0); Hemoglobin 11.8 g/dl (12.0-16.0); Imm Gran Abs Auto 0.01 X10*3/uL (0.00-0.03); Imm Gran Pct Auto 0.2 % (0.0-0.4); Lymphocytes Absolute Auto 1.7 X10*3/uL (1.2-4.9); Lymphocytes Percent Auto 36.4 % (20-40); Mean Corpuscular HGB Conc 32.6 g/dl (31.0-35.0); Mean Corpuscular Hemoglobin 28.5 pg (27.0-33.0); Mean Corpuscular Volume 87.4 fL (80.0-98.0); Mean Platelet Volume 10.5 fL (9.4-12.3); Monocytes Absolute Auto 0.5 X10*3/uL (0.1-1.2); Monocytes Percent Auto 9.5 % (2-11); Neutrophils Absolute Auto 2.3 x10*3/uL (2.0-8.3); Neutrophils Percent Auto 49.3 % (45-73); Platelet Count 273 X10*3/uL (160-400); Red Blood Count 4.14 X10*6/uL (4.20-5.50); Red Cell Distribution Width 13.4 % (11.0-16.0); White Blood Count 4.7 X10*3/uL (4.8-10.8)
[2024-09-26 13:31] LABS: Estimated Average Glucose 123 mg/dL; Hemoglobin A1c % 5.9 % (<6.0); Total Hemoglobin (HGBA1C) 3141.8093 umol/L
[2024-09-26 13:59] LABS: Alanine Aminotransferase 21 U/L (0-31); Albumin Level 4.3 g/dL (3.5-5.0); Alkaline Phosphatase 91 U/L (39-117); Anion Gap 14 (12-20); Aspartate Amino Transferase 30 U/L (5-31); Bilirubin Total 0.4 mg/dL (0.0-1.0); Blood Urea Nitrogen 13 mg/dL (9-16); Calcium 9.2 mg/dL (8.4-10.2); Carbon Dioxide 24 mmol/L (22-29); Chloride 108 mmol/L (96-108); Cholesterol 181 mg/dL (<200); Estimated Glomerular Filt Rate > 60; Glucose Fasting 102 mg/dL (60-99); HDL Cholesterol 42 mg/dL (>40); LDL Cholesterol Calculated 96 mg/dL (<100); Sodium 142 mmol/L (135-145); Total Protein 7.2 g/dL (6.5-8.0); Triglycerides 216 mg/dL (<150)
[2024-09-26 14:04] LABS: TSH reflex Free T4 0.78 uIU/mL (0.32-4.0)
[2024-09-26 14:12] LABS: Microalbum/Creatinine Ratio Ur 9.3 ug/mg cr (<30)
== END 2024-09-26 10:04 | disposition home or self-care (01) ==
LOC: HO.HMGCLDS 10:03
PROVIDERS: PCP Internal Medicine; Visit Provider Internal Medicine
DX: E78.5 Hyperlipidemia, unspecified (principal); E03.9 Hypothyroidism, unspecified; E11.9 Type 2 diabetes mellitus without complications
CPT/HCPCS: 36415; 80053; 80061; 82043; 82570; 83036; 84443; 85025

== ENCOUNTER 2024-09-29 12:32 | Outpatient (AMB) | payer MEDICARE, BC, SELFPAY ==
--- NOTE | 2024-09-29 12:33 | A.OFFPC_ITS ---
Vital Signs 09/29/24 12:34 Height 5 ft 3 in Weight 188 lb BMI 33.3 BP 124/72 Blood Pressure Location Lt brachial Position Sitting Pulse 84 Pulse Source Pulse Oximeter Pulse Oximetry (%) 96 Oxygen Delivery Method Room Air Intake Visit Reasons: 3 Mo Follow Up - see comments Intake Note: Pt is here today for 3 months follow up visit on DM. Allergies dapagliflozin [From [facility]] Adverse Reaction (Verified 09/29/24 12:35) candidasis metformin Adverse Reaction (Verified 09/29/24 12:35) Abdominal Pain Medication List - Last Reconciled 09/29/24 by Marielle Price MD albuterol sulfate 90 mcg/actuation (ProAir HFA) 2 puffs inhalation QID PRN atorvastatin 40 mg PO BEDTIME blood sugar diagnostic (FreeStyle Lite Strips) test blood sugar once a day blood-glucose meter (FreeStyle Lite Meter kit) As directed celecoxib 200 mg PO DAILY cholecalciferol (vitamin D3) 25 mcg PO DAILY citalopram 20 mg PO DAILY CPAP (CPAP Machine/Device) Pressure -10cm of H2O Nasal pillows and all needed supplies diclofenac sodium 1% (Voltaren Arthritis Pain) 2 grams topical QID flash glucose sensor (Ping[employer]Style An 2 Sensor kit) As directed fluticasone propionate 110 mcg/actuation 2 puffs inhalation BID lancets (FreeStyle Lancets) test blood sugar once a day levothyroxine (Synthroid) 75 mcg PO DAILY lorazepam 0.5 mg PO DAILY PRN mometasone 0.1% 1 appl topical DAILY Mounjaro (tirzepatide) 5 mg (0.5 mL) subcut QWEEK NS omeprazole 40 mg PO BID rosuvastatin 40 mg PO DAILY scopolamine base 1 patch transdermal Q3D PRN triamterene-hydrochlorothiazid 37.5-25 mg 1 tab PO DAILY zolpidem 5 mg PO BEDTIME PRN Tobacco use date assessed: 09/29/24 Fall risk assessment: No Falls in past year Last assessed Fall Risk: 09/29/24 Dental Screening Dental Screen Date: 02/26/24 HPI 3 Mo Follow Up - see comments HPI Details Pt presents for f/u hyperlipid, hypothyroid, hyperlipid, HTN, stable on meds. Pt will be starting Moujaro for weight loss. She is going to [place] in October for 3 months. Her was diagnosed with lung cancer underwent surgery for cure. [facility] Medical History (Updated 09/29/24 @ 13:29 by Marielle Price MD) DM type 2 (diabetes mellitus, type 2) Asthma Cough Shoulder pain, bilateral Neck pain Hyperglycemia History of mammogram Sleep apnea GERD (gastroesophageal reflux disease) Chronic depression Hypothyroidism Hyperlipidemia Surgical History Status post right knee replacement H/O colonoscopy History of esophagogastroduodenoscopy (EGD) No pertinent past surgical history Family History Mother Breast cancer Osteoporosis Social History Housing: House Alcohol intake: current Alcohol intake frequency: holidays/special occasions only Patient Tobacco Use Status: Never used Tobacco e-Cigarette/Vaping Use: Never Used service: No Current occupational status: retired Cognitive needs: No Hearing needs: No Vision needs: Yes Questionnaire PHQ-9 Over the last 2 weeks, how often have you been bothered by any of the following problems? 1. Little interest or pleasure in doing things: not at all 2. Feeling down, depressed, or hopeless: not at all 3. Trouble falling or staying asleep, or sleeping too much: several days 4. Feeling tired or having little energy: not at all 5. Poor appetite or overeating: not at all 6. Feeling bad about yourself - or that you are a failure or have let yourself or your family down: not at all 7. Trouble concentrating on things, such as reading the newspaper or watching television: not at all 8. Moving or speaking so slowly that other people could have noticed. Or the opposite - being so fidgety or restless that you have been moving around a lot more than usual: not at all 9. Thoughts that you would be better off or of hurting yourself in some way: not at all Total score: 1 Depression Screening Interpretation: Negative Depression Screening Done: Yes 75312 - PHQ-9 Billing: Yes Source: Developed by Drs. Philip Rivas, Frank Raman and colleagues, with an educational marilia from [employer]. Thrive Questionnaire Date Thrive assessed: 06/24/24 I am a: Patient What is your living situation today?: I have a steady place to live Within the past 12 months, did the food you bought not last and you didn't have the money to get more?: Never true Within the past 12 months, did you worry whether your food would run out before you got money to buy more?: Never true Do you have trouble paying for medicines?: No Do you have trouble getting transportation to medical appointments?: No Do you have trouble paying your heating and electricity bill?: No Do you have trouble taking care of your child, family member or friend?: No Do you have trouble with day-to-day activities such as bathing, preparing meals, shopping, managing finances, etc.?: No Are you currently unemployed and looking for a job?: No Are you interested in more education?: No Please select the resources that you would like help with: None Currently or been in a relationship where the following occur: No concerns reported THRIVE Score: 0 AUDIT C Alcohol Use Questionnaire (AUDIT-C) 1. How often do you have a drink containing alcohol?: Monthly or less 2. How many drinks containing alcohol do you have on a typical day when you are drinking?: 1 or 2 3. How often do you have six or more drinks on one occasion?: Never Total Score: 1 ROSIE-7 AMB Questionnaire ROSIE-7 Date ROSIE - 7 assessed: 06/24/24 Feeling nervous, anxious, or on edge: 0 = Not at all Not being able to stop or control worryin = Not at all Worrying too much about different things: 0 = Not at all Trouble relaxin = Not at all Being so restless that it is hard to sit still: 0 = Not at all Becoming easily annoyed or irritable: 0 = Not at all Feeling afraid as if something awful might happen: 0 = Not at all Total ROSIE-7 score (0-4 normal; 5-9 mild; 10-14 moderate; 15-21 severe): 0 Source: Developed by Carri Tate Kurt Kroenke and colleagues, with an educational marilia from [employer]. Review of Systems Const All systems reviewed & are unremarkable except as noted in HPI and below ENT Reports no additional complaints Card Reports no additional complaints Resp Reports no additional complaints GI Reports no additional complaints Reports no additional complaints Physical exam (Primary Care) Vital Signs: Last Vital Signs Pulse 84 09/29/24 12:34 BP 124/72 09/29/24 12:34 Pulse Ox 96 09/29/24 12:34 Oxygen Delivery Method Room Air 09/29/24 12:34 BMI result Body Mass Index 33.3 Tobacco/Smoking Status: Tobacco use Status Tobacco use date assessed 09/29/24 09/29/24 12:38 Patient Tobacco Use Status Never used Tobacco 09/29/24 12:38 e-Cigarette/Vaping Use Never Used 09/29/24 12:38 PHQ-9: PHQ-9 Score PHQ-9: Total score 1 09/29/24 12:38 Depression Screening Interpretation: Negative Thrive Assessment: Date of Thrive Assessment Date Thrive assessed 06/24/24 09/29/24 12:38 Currently or been in a relationship where the following occur: No concerns reported Const General: no acute distress HENMT Head: Yes normal to inspection Ears: hearing grossly normal bilaterally Face and sinus: Yes normal facial exam Mouth: Normal oral and palatal mucosa present Throat: Yes posterior oropharynx normal Eyes General: appearance normal, both eyes and all related structures Neck Neck: Yes no lymphadenopathy and Yes supple Resp Effort & Inspection: normal respiratory effort Auscultation: clear to auscultation bilaterally Cardio Rhythm: regular rhythm Heart sounds: S1 normal heart sound present and S2 normal heart sound present GI Inspection: Yes normal to inspection Palpation (GI): Soft to palpation Percussion: Yes normal to percussion Auscultation: normal bowel sounds Coding Level of Care Code Est Pt Level 4 (87551) Diagnoses Hyperlipidemia E78.5 Hypothyroidism E03.9 Hyperglycemia R73.9 DM type 2 (diabetes mellitus, type 2) E11.9 Overweight E66.3 Additional Codes PHQ-9 - 97038 - PHQ-9 Billing: Yes ([id number]) Assessment & Plan Assessment & Plan (1) Hyperlipidemia: Code(s): E78.5 - Hyperlipidemia, unspecified Category: Medical Plan: Continue statin (2) Hypothyroidism: Code(s): E03.9 - Hypothyroidism, unspecified Category: Medical Plan: Continue levothyroxine (3) Hyperglycemia: Code(s): R73.9 - Hyperglycemia, unspecified Category: Medical Plan: Continue ADA diet, increase physical activity weight loss discussed with the chirag gonzalez (4) DM type 2 (diabetes mellitus, type 2): Comment: Farxiga caused lightheadedness, frequent candidasis, Code(s): E11.9 - Type 2 diabetes mellitus without complications Category: Medical Plan: A1c is 5.9, restart Mounjaro 5 mg weekly and increase the dose as tolerates. (5) Overweight: Code(s): E66.3 - Overweight Category: Medical Plan: Decreasing caloric intake increase physical activity discussed with the patient Orders: Orders Comprehensive Depue. Panel Fast 6 Months E03.9 - Hypothyroidism, unspecified, E11.9 - Type 2 diabetes mellitus without complications, E78.5 - Hyperlipidemia, unspecified, R73.9 - Hyperglycemia, unspecified Complete Blood Count Auto Diff 6 Months E03.9 - Hypothyroidism, unspecified, E11.9 - Type 2 diabetes mellitus without complications, E78.5 - Hyperlipidemia, unspecified, R73.9 - Hyperglycemia, unspecified Microalbumin, Random (w Creat) 6 Months E03.9 - Hypothyroidism, unspecified, E11.9 - Type 2 diabetes mellitus without complications, E78.5 - Hyperlipidemia, unspecified, R73.9 - Hyperglycemia, unspecified Hemoglobin A1c 6 Months E03.9 - Hypothyroidism, unspecified, E11.9 - Type 2 diabetes mellitus without complications, E78.5 - Hyperlipidemia, unspecified, R73.9 - Hyperglycemia, unspecified Lipid Panel 6 Months E03.9 - Hypothyroidism, unspecified, E11.9 - Type 2 diabetes mellitus without complications, E78.5 - Hyperlipidemia, unspecified, R73.9 - Hyperglycemia, unspecified Medications: Discontinued rosuvastatin Discontinued Reason: Doctor's Order 40 mg PO DAILY 90 tabs 3RF
[2024-09-29 12:34] VITALS: BP 124/72; PULSE 84; O2SAT 96; BMI 33.3
== END 2024-09-29 13:31 | disposition home or self-care (01) ==
PROVIDERS: PCP Internal Medicine; Visit Provider Internal Medicine
DX: E78.5 Hyperlipidemia, unspecified (principal); E03.9 Hypothyroidism, unspecified; R73.9 Hyperglycemia, unspecified; E11.9 Type 2 diabetes mellitus without complications; E66.3 Overweight

== ENCOUNTER → 2024-09-29 12:32 | Outpatient (BNVA) | payer MEDICARE, BC, SELFPAY | PROVIDERS: PCP Internal Medicine; Visit Provider Internal Medicine | DX: E78.5 Hyperlipidemia, unspecified (principal); E03.9 Hypothyroidism, unspecified; E66.3 Overweight; E11.65 Type 2 diabetes mellitus with hyperglycemia | CPT/HCPCS: 96127; 99212 ==

== ENCOUNTER 2025-02-13 10:45 | Outpatient (AMB) | payer MEDICARE, BC, SELFPAY ==
--- NOTE | 2025-02-13 10:58 | MHC.PC.OV ---
Vital Signs 02/13/25 10:59 Height 5 ft 3 in Weight 184 lb BMI 32.6 BP 120/76 Blood Pressure Location Lt brachial Position Sitting Respiration 18 Pulse 84 Pulse Source Pulse Oximeter Temp 98.4 F Temp Source Oral Pulse Oximetry (%) 96 Oxygen Delivery Method Room Air Intake Visit Reasons: Medication follow up Intake Note: Pt is here today for a follow up visit. Allergies dapagliflozin [From [facility]] Adverse Reaction (Verified 02/13/25 11:21) candidasis metformin Adverse Reaction (Verified 02/13/25 11:21) Abdominal Pain Medication List - Last Reconciled 02/13/25 by Marielle Price MD albuterol sulfate 90 mcg/actuation (ProAir HFA) 2 puffs inhalation QID PRN atorvastatin 40 mg PO BEDTIME blood sugar diagnostic (FreeStyle Lite Strips) test blood sugar once a day blood-glucose meter (FreeStyle Lite Meter kit) As directed celecoxib 200 mg PO DAILY cholecalciferol (vitamin D3) 25 mcg PO DAILY citalopram 20 mg PO DAILY CPAP (CPAP Machine/Device) Pressure -10cm of H2O Nasal pillows and all needed supplies diclofenac sodium 1% (Voltaren Arthritis Pain) 2 grams topical QID flash glucose sensor ([employer] An 2 Sensor kit) As directed fluticasone propionate 110 mcg/actuation 2 puffs inhalation BID lancets (FreeStyle Lancets) test blood sugar once a day levothyroxine (Synthroid) 75 mcg PO DAILY lorazepam 0.5 mg PO DAILY PRN mometasone 0.1% 1 appl topical DAILY Mounjaro (tirzepatide) 5 mg (0.5 mL) subcut QWEEK NS omeprazole 40 mg PO BID scopolamine base 1 patch transdermal Q3D PRN triamterene-hydrochlorothiazid 37.5-25 mg 1 tab PO DAILY zolpidem 5 mg PO BEDTIME PRN Tobacco use date assessed: 02/13/25 Fall risk assessment: No Falls in past year Last assessed Fall Risk: 02/13/25 Dental Screening Dental Screen Date: 02/13/25 Did you have a dental visit in the last 12 months?: Yes Did you have a dental problem in the last 6 months where you did not have access to dental care?: No Was dental information given to patient?: Patient has dentist HPI Medication follow up HPI Details Pt presents for DM 2, hyperlipid, hypothyroid, HTN. Pt tried Mounjaro but could not tolerated, stomach upset and fullness. Pt reports feeling more depressed and having insomnia more frequently Pt denies SI. She is contemplating starting counseling. [facility] Medical History DM type 2 (diabetes mellitus, type 2) Asthma Cough Shoulder pain, bilateral Neck pain Hyperglycemia History of mammogram Sleep apnea GERD (gastroesophageal reflux disease) Chronic depression Hypothyroidism Hyperlipidemia Surgical History Status post right knee replacement H/O colonoscopy History of esophagogastroduodenoscopy (EGD) No pertinent past surgical history Family History Mother Breast cancer Osteoporosis Social History Housing: House Alcohol intake: current Alcohol intake frequency: holidays/special occasions only Patient Tobacco Use Status: Never used Tobacco e-Cigarette/Vaping Use: Never Used service: No Current occupational status: retired Cognitive needs: No Hearing needs: No Vision needs: Yes Questionnaire PHQ-9 Over the last 2 weeks, how often have you been bothered by any of the following problems? 1. Little interest or pleasure in doing things: more than half the days 2. Feeling down, depressed, or hopeless: not at all 3. Trouble falling or staying asleep, or sleeping too much: more than half the days 4. Feeling tired or having little energy: more than half the days 5. Poor appetite or overeating: more than half the days 6. Feeling bad about yourself - or that you are a failure or have let yourself or your family down: not at all 7. Trouble concentrating on things, such as reading the newspaper or watching television: not at all 8. Moving or speaking so slowly that other people could have noticed. Or the opposite - being so fidgety or restless that you have been moving around a lot more than usual: not at all 9. Thoughts that you would be better off or of hurting yourself in some way: not at all Total score: 8 Depression Screening Interpretation: Negative Depression Screening Done: Yes 85258 - PHQ-9 Billing: Yes Source: Developed by Drs. Philip Rivas, Carri Rowley, Frank Aparicio and colleagues, with an educational marilia from [employer]. Thrive Questionnaire Date Thrive assessed: 02/13/25 I am a: Patient What is your living situation today?: I have a steady place to live Within the past 12 months, did the food you bought not last and you didn't have the money to get more?: Never true Within the past 12 months, did you worry whether your food would run out before you got money to buy more?: Never true Do you have trouble paying for medicines?: No Do you have trouble getting transportation to medical appointments?: No Do you have trouble paying your heating and electricity bill?: No Do you have trouble taking care of your child, family member or friend?: No Do you have trouble with day-to-day activities such as bathing, preparing meals, shopping, managing finances, etc.?: No Are you currently unemployed and looking for a job?: No Are you interested in more education?: No Please select the resources that you would like help with: None Currently or been in a relationship where the following occur: No concerns reported THRIVE Score: 0 AUDIT C Alcohol Use Questionnaire (AUDIT-C) 1. How often do you have a drink containing alcohol?: Monthly or less 2. How many drinks containing alcohol do you have on a typical day when you are drinking?: 1 or 2 3. How often do you have six or more drinks on one occasion?: Never Total Score: 1 ROSIE-7 AMB Questionnaire ROSIE-7 Date ROSIE - 7 assessed: 02/13/25 Feeling nervous, anxious, or on edge: 0 = Not at all Not being able to stop or control worryin = Not at all Worrying too much about different things: 0 = Not at all Trouble relaxin = Several days Being so restless that it is hard to sit still: 0 = Not at all Becoming easily annoyed or irritable: 1 = Several days Feeling afraid as if something awful might happen: 0 = Not at all Total ROSIE-7 score (0-4 normal; 5-9 mild; 10-14 moderate; 15-21 severe): 2 Source: Developed by Drs. Philip Rivas, Carri Rowley, Frank Aparicio and colleagues, with an educational marilia from [employer]. ROSIE-7 Assessment Billing ROSIE-7 Assessment Tool: ROSIE-7 Assessment 53102 Review of Systems Const All systems reviewed & are unremarkable except as noted in HPI and below Eyes Reports no additional complaints ENT Reports no additional complaints Card Reports no additional complaints Resp Reports no additional complaints GI Reports no additional complaints Reports no additional complaints Physical exam (Primary Care) Vital Signs: Last Vital Signs Temp 98.4 F 02/13/25 10:59 Pulse 84 02/13/25 10:59 Resp 18 02/13/25 10:59 BP 120/76 02/13/25 10:59 Pulse Ox 96 02/13/25 10:59 Oxygen Delivery Method Room Air 02/13/25 10:59 BMI result Body Mass Index 32.6 Tobacco/Smoking Status: Tobacco use Status Tobacco use date assessed 02/13/25 02/13/25 11:02 Patient Tobacco Use Status Never used Tobacco 02/13/25 11:02 e-Cigarette/Vaping Use Never Used 02/13/25 11:02 PHQ-9: PHQ-9 Score PHQ-9: Total score 8 02/13/25 11:47 Depression Screening Interpretation: Negative Thrive Assessment: Date of Thrive Assessment Date Thrive assessed 02/13/25 02/13/25 11:02 Currently or been in a relationship where the following occur: No concerns reported Const General: no acute distress HENMT Head: Yes normal to inspection Face and sinus: Yes normal facial exam Mouth: Normal oral and palatal mucosa present Throat: Yes posterior oropharynx normal Eyes General: appearance normal, both eyes and all related structures Neck Neck: Yes no lymphadenopathy and Yes supple Resp Effort & Inspection: normal respiratory effort Auscultation: clear to auscultation bilaterally Cardio Rhythm: regular rhythm Heart sounds: S1 normal heart sound present and S2 normal heart sound present GI Inspection: Yes normal to inspection Palpation (GI): Soft to palpation Percussion: Yes normal to percussion Auscultation: normal bowel sounds Coding Level of Care Code Est Pt Level 4 (31261) Diagnoses Hyperlipidemia E78.5 Hypothyroidism E03.9 DM type 2 (diabetes mellitus, type 2) E11.9 Chronic depression F32.9 Additional Codes ROSIE-7 Assessment Billing - ROSIE-7 Assessment Tool: ROSIE-7 Assessment 19549 ([id number]) PHQ-9 - 99717 - PHQ-9 Billing: Yes ([id number]) Assessment & Plan Assessment & Plan (1) Hyperlipidemia: Code(s): E78.5 - Hyperlipidemia, unspecified Category: Medical Plan: Continue statin return for fasting blood work (2) Hypothyroidism: Code(s): E03.9 - Hypothyroidism, unspecified Category: Medical Plan: Continue levothyroxine (3) DM type 2 (diabetes mellitus, type 2): Comment: Farxiga caused lightheadedness, frequent candidasis, Mounjaro cause nausea and vomiting Code(s): E11.9 - Type 2 diabetes mellitus without complications Category: Medical Plan: ADA diet regular physical activity weight loss discussed with the patient she will 5 Ozempic 0.25 mg weekly follow-up in 3 months with a fasting labs before (4) Chronic depression: Code(s): F32.9 - Major depressive disorder, single episode, unspecified Category: Medical Plan: Patient will start counseling. Citalopram will being increase to 40 mg a day. Orders: Orders Hemoglobin A1c 3 Months E03.9 - Hypothyroidism, unspecified, E11.9 - Type 2 diabetes mellitus without complications, E78.5 - Hyperlipidemia, unspecified Complete Blood Count Auto Diff 3 Months E03.9 - Hypothyroidism, unspecified, E11.9 - Type 2 diabetes mellitus without complications, E78.5 - Hyperlipidemia, unspecified Lipid Panel 3 Months E03.9 - Hypothyroidism, unspecified, E11.9 - Type 2 diabetes mellitus without complications, E78.5 - Hyperlipidemia, unspecified Comprehensive [place]. Panel Fast 3 Months E03.9 - Hypothyroidism, unspecified, E11.9 - Type 2 diabetes mellitus without complications, E78.5 - Hyperlipidemia, unspecified Microalbumin, Random (w Creat) 3 Months E03.9 - Hypothyroidism, unspecified, E11.9 - Type 2 diabetes mellitus without complications, E78.5 - Hyperlipidemia, unspecified Medications: New Ozempic (semaglutide) 0.25 mg (0.368 mL) subcut QWEEK 3 mL 3RF NS citalopram 40 mg orally daily; 90 tabs 0RF citalopram 40 mg PO DAILY 90 tabs 0RF Refilled diclofenac sodium 1% (Voltaren Arthritis Pain) 2 grams topical QID 100 grams 2RF Discontinued citalopram Discontinued Reason: Doctor's Order 20 mg PO DAILY 90 tabs 3RF Mounjaro (tirzepatide) for 4 weeks Discontinued Reason: Doctor's Order 5 mg (0.5 mL) subcut QWEEK 6 mL 1RF NS E11.9 - Type 2 diabetes mellitus without complications
[2025-02-13 10:59] VITALS: BP 120/76; PULSE 84; RESP 18; TEMP 36.9; O2SAT 96; BMI 32.6
== END 2025-02-13 12:01 | disposition home or self-care (01) ==
LOC: HO.HMCC 10:46
PROVIDERS: PCP Internal Medicine; Visit Provider Internal Medicine
DX: E78.5 Hyperlipidemia, unspecified (principal); E03.9 Hypothyroidism, unspecified; E11.9 Type 2 diabetes mellitus without complications; F32.9 Major depressive disorder, single episode, unspecified

== ENCOUNTER → 2025-02-13 10:45 | Outpatient (BNVA) | payer MEDICARE, BC, SELFPAY | PROVIDERS: PCP Internal Medicine; Visit Provider Internal Medicine | DX: E78.5 Hyperlipidemia, unspecified (principal); E03.9 Hypothyroidism, unspecified; E11.9 Type 2 diabetes mellitus without complications; F32.9 Major depressive disorder, single episode, unspecified | CPT/HCPCS: 96127; 99212 ==

== ENCOUNTER 2025-05-15 12:21 | Outpatient (AMB) | payer MEDICARE, BC, SELFPAY ==
--- NOTE | 2025-05-15 12:29 | MHC.PC.OV ---
Vital Signs 05/15/25 12:31 Height 5 ft 3 in Weight 187 lb BMI 33.1 BP 130/70 Blood Pressure Location Lt brachial Position Sitting Pulse 80 Pulse Source Pulse Oximeter Pulse Oximetry (%) 97 Oxygen Delivery Method Room Air Intake Visit Reasons: 3m follow up Allergies tirzepatide (From [facility]) Adverse Reaction (Intermediate, Verified 05/15/25 13:06) Abdominal Pain dapagliflozin (From [facility]) Adverse Reaction (Verified 05/15/25 12:32) candidasis metformin Adverse Reaction (Verified 05/15/25 12:32) Abdominal Pain Medication List - Last Reconciled 05/15/25 by Marielle Price MD albuterol sulfate 90 mcg/actuation (ProAir HFA) 2 puffs inhalation QID PRN amoxicillin 2,000 mg (4 x 500 mg) PO ONCE atorvastatin 40 mg PO BEDTIME azelastine 137 mcg (0.137 mL) intranasal BID blood sugar diagnostic (FreeStyle Lite Strips) test blood sugar once a day blood-glucose meter (FreeStyle Lite Meter kit) As directed celecoxib 200 mg PO DAILY cholecalciferol (vitamin D3) 25 mcg PO DAILY citalopram 20 mg PO DAILY CPAP (CPAP Machine/Device) Pressure -10cm of H2O Nasal pillows and all needed supplies diclofenac sodium 1% (Voltaren Arthritis Pain) 2 grams topical QID flash glucose sensor (AzaleosStyle An 2 Sensor kit) As directed fluticasone propionate 110 mcg/actuation 2 puffs inhalation BID lancets (FreeStyle Lancets) test blood sugar once a day levothyroxine (Synthroid) 75 mcg PO DAILY lorazepam 0.5 mg PO DAILY PRN mometasone 0.1% 1 appl topical DAILY omeprazole 40 mg PO BID scopolamine base 1 patch transdermal Q3D PRN triamterene-hydrochlorothiazid 37.5-25 mg 1 tab PO DAILY zolpidem 5 mg PO BEDTIME PRN Tobacco use date assessed: 02/13/25 Fall risk assessment: No Falls in past year Last assessed Fall Risk: 05/15/25 Dental Screening Dental Screen Date: 02/13/25 HPI 3m follow up HPI Details Patient presents for the follow-up of hypothyroidism hypertension hyperlipidemia chronic anxiety diet-controlled diabetes PFSH Medical History DM type 2 (diabetes mellitus, type 2) Asthma Cough Shoulder pain, bilateral Neck pain Hyperglycemia History of mammogram Sleep apnea GERD (gastroesophageal reflux disease) Chronic depression Hypothyroidism Hyperlipidemia Surgical History Status post right knee replacement H/O colonoscopy History of esophagogastroduodenoscopy (EGD) No pertinent past surgical history Family History Mother Breast cancer Osteoporosis Social History Housing: House Alcohol intake: current Alcohol intake frequency: holidays/special occasions only Patient Tobacco Use Status: Never used Tobacco e-Cigarette/Vaping Use: Never Used service: No Current occupational status: retired Cognitive needs: No Hearing needs: No Vision needs: Yes Questionnaire Thrive Questionnaire Date Thrive assessed: 02/10/25 I am a: Patient What is your living situation today?: I have a steady place to live Within the past 12 months, did the food you bought not last and you didn't have the money to get more?: Never true Within the past 12 months, did you worry whether your food would run out before you got money to buy more?: Never true Do you have trouble paying for medicines?: No Do you have trouble getting transportation to medical appointments?: No Do you have trouble paying your heating and electricity bill?: No Do you have trouble taking care of your child, family member or friend?: No Do you have trouble with day-to-day activities such as bathing, preparing meals, shopping, managing finances, etc.?: No Are you currently unemployed and looking for a job?: No Are you interested in more education?: No Please select the resources that you would like help with: None Currently or been in a relationship where the following occur: No concerns reported THRIVE Score: 0 ROSIE-7 AMB Questionnaire ROSIE-7 Date ROSIE - 7 assessed: 02/13/25 Source: Developed by Drs. Philip Rivas, Carri Rowley, Frank Aparicio and colleagues, with an educational marilia from [employer] Review of Systems Const All systems reviewed & are unremarkable except as noted in HPI and below Eyes Reports no additional complaints ENT Reports no additional complaints Card Reports no additional complaints Resp Reports no additional complaints GI Reports no additional complaints Reports no additional complaints Physical exam (Primary Care) Vital Signs: Last Vital Signs Pulse 80 05/15/25 12:31 BP 130/70 05/15/25 12:31 Pulse Ox 97 05/15/25 12:31 Oxygen Delivery Method Room Air 05/15/25 12:31 BMI result Body Mass Index 33.1 Tobacco/Smoking Status: Tobacco use Status Tobacco use date assessed 02/13/25 05/15/25 12:31 Patient Tobacco Use Status Never used Tobacco 05/15/25 12:31 e-Cigarette/Vaping Use Never Used 05/15/25 12:31 Thrive Assessment: Date of Thrive Assessment Date Thrive assessed 02/10/25 05/15/25 12:31 Currently or been in a relationship where the following occur: No concerns reported Const General: no acute distress HENMT Head: Yes normal to inspection Face and sinus: Yes normal facial exam Eyes General: appearance normal, both eyes and all related structures Neck Neck: Yes supple Resp Effort & Inspection: normal respiratory effort Auscultation: clear to auscultation bilaterally Cardio Rhythm: regular rhythm Heart sounds: S1 normal heart sound present and S2 normal heart sound present GI Inspection: Yes normal to inspection Palpation (GI): Soft to palpation Percussion: Yes normal to percussion Auscultation: normal bowel sounds Coding Level of Care Code Est Pt Level 4 (21690) Complex EM visit Add On G2211 Diagnoses Right knee DJD M17.11 Hypothyroidism E03.9 DM type 2 (diabetes mellitus, type 2) E11.9 HTN (hypertension) I10 Assessment & Plan Assessment & Plan (1) Right knee DJD: Code(s): M17.11 - Unilateral primary osteoarthritis, right knee Category: Medical Plan: Patient follows up with orthopedic surgeon (2) Hypothyroidism: Code(s): E03.9 - Hypothyroidism, unspecified Category: Medical Plan: Continue Levothyroxine (3) DM type 2 (diabetes mellitus, type 2): Comment: Farxiga caused lightheadedness, frequent candidasis, Mounjaro cause nausea and vomiting Code(s): E11.9 - Type 2 diabetes mellitus without complications Category: Medical Plan: A1c is 5.9, ADA diet increase exercise weight loss discussed with the patient (4) HTN (hypertension): Code(s): I10 - Essential (primary) hypertension Category: Medical Plan: Continue current medications Orders: Orders Comprehensive [facility]. Panel Fast 6 Months E03.9 - Hypothyroidism, unspecified, E11.9 - Type 2 diabetes mellitus without complications Hemoglobin A1c 6 Months E03.9 - Hypothyroidism, unspecified, E11.9 - Type 2 diabetes mellitus without complications Lipid Panel 6 Months E03.9 - Hypothyroidism, unspecified, E11.9 - Type 2 diabetes mellitus without complications Complete Blood Count Auto Diff 6 Months E03.9 - Hypothyroidism, unspecified, E11.9 - Type 2 diabetes mellitus without complications TSH reflex Free T4 6 Months E03.9 - Hypothyroidism, unspecified, E11.9 - Type 2 diabetes mellitus without complications Microalbumin, Random (w Creat) 6 Months E03.9 - Hypothyroidism, unspecified, E11.9 - Type 2 diabetes mellitus without complications Referrals Orthopedics Referral M17.11 - Unilateral primary osteoarthritis, right knee Medications: New citalopram 20 mg PO DAILY 90 tabs 0RF Discontinued Ozempic (semaglutide) Discontinued Reason: Doctor's Order 0.25 mg (0.368 mL) subcut QWEEK 3 mL 3RF NS citalopram Discontinued Reason: Duplicate 40 mg PO DAILY 90 tabs 0RF
[2025-05-15 12:31] VITALS: BP 130/70; PULSE 80; O2SAT 97; BMI 33.1
--- OUTSIDE RECORDS SUMMARY | 2025-05-15 13:10 | XMS_ITS | Data Portability ---
Author Organization [place] - [facility], Allergy Address [address] [address] Care Team Providers Care Sink Maker Name Role Phone REYNA BLUE Primary Care Provider REYNA BLUE Referring Provider Assessment Encounter Date Assessment Date Assessment LastModified by Organization Details LastModified Time 09/19/2024 09/19/2024 Patient's audiogram shows RIGHT moderate sensorineural hearing loss with moderately reduced speech discrimination. There is enough hearing loss to affect day-to-day hearing performance. We discussed in detail the pros and cons of amplification (hearing aids). Patient would like to learn more about this option so I have provided a copy of the audiogram, a list of [facility] hearing aid providers, and medical clearance for amplification so the patient can pursue this at their convenience. Patient is medically cleared for amplification in the right ear. [email or web address] Not available 09/19/2024 11:50:58 Plan of Treatment Reminders Order Date Submit Date Provider Last Modified By Organization Details Last Modified Time Details Appointments None record ed. Lab None record ed. Referral None record ed. Procedures None record ed. Surgeries None record ed. Imaging None record ed. Medication Orders None record ed. Patient TargetsNo targets recorded. Patient InstructionsNo instructions recorded. Reason for Referral None Reported. Results Created Date Observation Date Name Description Value Unit Range Abnormal Flag Note LastModifiedBy Organization Detail LastModifiedTime 09/19/20 24 audio gram No observ ation record ed. BARCODE Not Available 2023 15:15:43 Result Notes None recorded. Problems Name Problem SNOMED Code Status Onset Date Resolution Date Notes Provider Name and Address Organization Details Recorded Time Allergic rhinitis 70332442 Active 2021 Other allergic rhinitis; Note: Date Diagnosed : 07/07/2022 12:36 PM (J30.89) Note: Date Diagnosed : 07/07/2022 12:36 PM (J30.89) Not Available [facility] 4 01:00:39 Tinnitus of right ear 05941362453 08 Active 2022 Tinnitus, right ear; Note: Date Diagnosed : 05/17/2023 4:16 PM (H93.11) Not Available [facility] 4 02:35:42 Sensorine ural hearing loss of bilateral ears 361163663 Active 2021 Sensorine ural hearing loss, bilateral ; Note: Date Diagnosed : 05/26/2022 2:10 PM (H90.3) , R>L Not Available [facility] 4 02:35:41 Otalgia of right ear 7878086084 Active 2021 Otalgia, right ear; Note: Date Diagnosed : 05/26/2022 5:18 PM (H92.01) Not Available [facility] 4 02:35:46 M ni re's disease 13570105 Active 2023 Meniere's disease, right ear; Note: Date Diagnosed : 02/22/2024 3:27 PM (H81.01) CRISTINA VILLARREAL MD [address] [place] [address], [address] [facility] - [facility] 4 14:21:07 Dizziness and giddiness 564898764 Active 2023 Dizziness and giddiness ; Note: Date Diagnosed : 02/22/2024 3:02 PM (R42) Not Available [facility] 4 02:35:48 Problem Notes None recorded. Procedures Surgical History Date Name Laterality Status Provider Name and Address Organization Details Recorded Time 09/19/2024 Air & Speech Audio with Tymps - 71137, 86936 & 97684 completed Maritza Zavala [place] - [facility] 09/19/2024 11:30:53 Imaging Results None recorded. Procedure Notes None recorded. Medical Equipment None Reported. Medications Name Sig Start Date Stop Date Status Note LastModified by Organization Details LastModified Time celecoxib 200 mg capsule TAKE 1 CAPSULE BY MOUTH DAILY active Not Available Not Available No t Available atorvasta tin 40 mg tablet TAKE 1 TABLET BY MOUTH DAILY active Not Available Not Available No t Available citalopra m 40 mg tablet TAKE 1 TABLET BY MOUTH DAILY active Not Available Not Available No t Available trazodone 50 mg tablet active Not Available Not Available Not Available zinc acetate 25 mg (zinc) capsule active Medicati on ID: [id number] B rand Name: zinc acetate Send Method: E-Prescr ibed Sub s Allowed: subs OK Medic ationGen ericName : zinc acetate Not Available Not Available Not Available Lidocaine Viscous 2 % mucosal solution TOME 10ML CADA 4 HORAS CUANSO SEA NECESARI O PARA REFLUJO active Not Available Not Available No t Available fluconazo le 150 mg tablet 1 TABLET BY MOUTH DAILTY FOR 5 DAYS active Not Available Not Available No t Available tretinoin 0.025 % topical cream PLEASE SEE ATTACHED FOR DETAILED DIRECTIO NS active Not Available Not Available No t Available sucralfat e 100 mg/mL oral suspensio n SHAKE LIQUID AND TAKE 10 ML BY MOUTH TWICE DAILY NEEDED active Not Available Not Available No t Available metronida zole 0.75 % (37.5 mg/5 gram) vaginal gel INSERT ONE APPLICAT ORFUL VAGINALL Y AT BEDTIME MONTH AT BEDTIME FOR 5 DAYS active Not Available Not Available No t Available ondansetr on HCl 4 mg tablet TAKE 1 TABLET BY MOUTH EVERY 8 HOURS NEEDED active Not Available Not Available No t Available famotidin e 40 mg tablet active Medicati on ID: [id number] B rand Name: famotidi ne Send Method: E-Prescr ibed Sub s Allowed: subs OK Medic ationGen ericName : famotidi ne Not Available Not Available Not Available ciproflox acin 500 mg tablet CHERYL RAHEEL TABLETA DOS VECES AL MERCEDES POR 7 HIGGINBOTHAM active Not Available Not Available No t Available levothyro xine 75 mcg tablet TAKE 1 TABLET BY MOUTH DAILY active Not Available Not Available No t Available hydrocort isone 2.5 % topical cream with perineal applicato r APPLY SMALL AMOUNT TOPICALL Y TO THE AFFECTED AREA TWICE DAILY NEEDED active Not Available Not Available No t Available citalopra m 20 mg tablet TAKE 1 TABLET BY MOUTH ONCE DAILY active Not Available Not Available No t Available lorazepam 0.5 mg tablet TAKE 1 TABLET BY MOUTH DAILY NEEDED FOR ANXIETY active Not Available Not Available No t Available meclizine 25 mg tablet TAKE 1 TABLET BY MOUTH DAILY NEEDED FOR VERTIGO active Not Available Not Available No t Available clotrimaz ole-betam ethasone 1 %-0.05 % topical cream APLICAR RAHEEL CUARTO DE GRAMO AL AREA AFECTADA MARY ELLEN VECES AL MERCEDES CUANDO SEA NECESARI O active Not Available Not Available No t Available orphenadr ine citrate ER 100 mg tablet,ex tended release TAKE 1 TABLET BY MOUTH TWICE DAILY active Not Available Not Available No t Available triamtere ne 37.5 mg-hydroc hlorothia zide 25 mg tablet TAKE 1 TABLET BY MOUTH DAILY active Not Available Not Available No t Available omeprazol e 20 mg capsule,d elayed release TAKE 1 CAPSULE BY MOUTH THREE TIMES DAILY DIRECTED active Not Available Not Available No t Available zolpidem 5 mg tablet TAKE 1 TABLET BY MOUTH AT BEDTIME NEEDED FOR SLEEP active Not Available Not Available No t Available azelastin e 137 mcg (0.1 %) nasal spray INSTILL 2 SPRAYS IN EACH NOSTRIL TWICE DAILY active Not Available Not Available No t Available Dyazide 37.5 mg-25 mg capsule Take 1 capsule by mouth once a day as directed 2023 active Medicati on ID: [id number] D uration Value: 90 Brand Name: Dyazide Send Method: E-Prescr ibed Sub s Allowed: subs OK Medic ationGen ericName : Dyazide Not Available Not Available Not Available polyethyl nina glycol 3350 17 gram/dose oral powder DISSOLVE 17 GRAMS INTO LIQUID AND DRINK BY MOUTH DAILY active Not Available Not Available No t Available zolpidem 10 mg tablet TOME RAHEEL TABLETA POR LA BOCA DIARIAME NTE A LA HORA DE ACOSTARS E CUANDO SEA NECESARI O active Not Available Not Available No t Available scopolami ne 1 mg over 3 days transderm al patch APPLY 1 PATCH TRANSDER TYSON EVERY 3 DAYS NEEDED FOR NAUSEA AND VOMITING active Not Available Not Available No t Available fluticaso ne propionat e 50 mcg/actua tion nasal spray,thom pension Lorimor 2 sprays every day by intranas al route as directed for 30 days, for 30. 2023 active Medicati on ID: [id number] D uration Value: 30 Brand Name: fluticas one propiona te Send Method: E-Prescr ibed Sub s Allowed: subs OK Speci al Instruct ion: USE 2 SPRAY IN EACH NOSTRIL ONCE A DAY Medi cationGe nericNam e: fluticas one propiona te Medic ation ID: [id number] D uration Value: 30 Brand Name: fluticas one propiona te Send Method: E-Prescr ibed Sub s Allowed: subs OK Speci al Instruct ion: USE 2 SPRAY IN EACH NOSTRIL ONCE A DAY Medi cationGe nericNam e: fluticas one propiona te Not Available Not Available Not Available metformin ER 500 mg tablet,ex tended release 24 hr CHERYL RAHEEL TABLETA EN LA TARDE active Not Available Not Available No t Available loratadin e 10 mg tablet TAKE 1 TABLET BY MOUTH EVERY DAY active Not Available Not Available No t Available fluticaso ne propionat e 110 mcg/actua tion HFA aerosol inhaler INHALE 2 PUFFS BY MOUTH TWICE DAILY active Not Available Not Available No t Available diazepam 5 mg tablet active Not Available Not Available Not Available ciclopiro x 0.77 % topical gel APPLY TOPICALL Y TO THE AFFECTED AREA DAILY active Not Available Not Available No t Available ciclopiro x 0.77 % topical cream APPLY TO THE AFFECTED AREA TWICE DAILY ON FEET active Not Available Not Available No t Available Vitamin D3 25 mcg (1,000 unit) capsule TAKE 1 CAPSULE BY MOUTH DAILY. active Not Available Not Available No t Available azelaic acid 15 % topical gel APPLY THIN LAYER TO FACE FOR ROSACEA TWICE A DAY active Not Available Not Available No t Available Fish Oil 120 mg-180 mg capsule active Medicati on ID: [id number] B rand Name: Fish Oil Send Method: E-Prescr ibed Sub s Allowed: subs OK Medic ationGen ericName : Fish Oil Not Available Not Available Not Available rosuvasta tin 40 mg tablet TAKE 1 TABLET BY MOUTH DAILY active Not Available Not Available No t Available Multivita min 50 Plus tablet active Medicati on ID: [id number] B rand Name: Multivit avendaño 50 Plus Sen d Method: E-Prescr ibed Sub s Allowed: subs OK Medic ationGen ericName : Multivit avendaño 50 Plus Not Available Not Available Not Available Calcium 600 + D(3) 600 mg-5 mcg (200 unit) tablet active Medicati on ID: [id number] B rand Name: Calcium 600 + D(3) Sen d Method: E-Prescr ibed Sub s Allowed: subs OK Medic ationGen ericName : Calcium 600 + D(3) Not Available Not Available Not Available ramelteon 8 mg tablet TAKE 1 TABLET BY MOUTH DAILY AT BEDTIME NEEDED active Not Available Not Available No t Available magnesium active Medicati on ID: [id number] B rand Name: magnesiu m Send Method: E-Prescr ibed Sub s Allowed: subs OK Medic ationGen ericName : magnesiu m Not Available Not Available Not Available lubiprost one 24 mcg capsule active Medicati on ID: [id number] B rand Name: lubipros tone Sen d Method: E-Prescr ibed Sub s Allowed: subs OK Medic ationGen ericName : lubipros tone Not Available Not Available Not Available cholecalc iferol (vitamin D3) 25 mcg (1,000 unit) tablet active Not Available Not Available Not Available diclofena c 1 % topical gel APPLY 2 GRAMS TOPICALL Y TO THE AFFECTED AREA FOUR TIMES DAILY active Not Available Not Available No t Available melatonin 5 mg tablet active Medicati on ID: [id number] B rand Name: melatoni n Send Method: E-Prescr ibed Sub s Allowed: subs OK Medic ationGen ericName : melatoni n Not Available Not Available Not Available dexlansop razole 60 mg capsule,b iphase delayed release active Medicati on ID: [id number] B rand Name: dexlanso prazole Send Method: E-Prescr ibed Sub s Allowed: subs OK Medic ationGen ericName : dexlanso prazole Not Available Not Available Not Available Leydi Allergy 60 mg tablet active Medicati on ID: [id number] B rand Name: Leydi Allergy Send Method: E-Prescr ibed Sub s Allowed: subs OK Medic ationGen ericName : Leydi Allergy Not Available Not Available Not Available Farxiga 5 mg tablet active Not Available Not Available No t Available azelastin e 137 mcg-fluti casone 50 mcg spray,thom p-NaCl 0.9% spray nasal Take 2 sprays twice a day by nasal route as directed for 30 days. 06/25 completed Not Available Not Available Not Available Mounjaro 5 mg/0.5 mL subcutane ous pen injector ADMINIST ER 5 MG UNDER THE SKIN EVERY WEEK FOR 4 WEEKS active Not Available Not Available No t Available Mounjaro 2.5 mg/0.5 mL subcutane ous pen injector ADMINIST ER 2.5 MG UNDER THE SKIN EVERY WEEK active Not Available Not Available No t Available Vitals Date Recorded Body height Body mass index (BMI) Body weight Provider Name and Address Organization Details Last Updated DateTime 09/19/2024 160.02 cm 32.9 kg/m2 55936.18 g Imani Hinton [place] - [facility] 09/19/2024 11:38:55 Social History None recorded. Functional Status None recorded. Mental Status None recorded. Family History Nothing Reported. Medical History No medical history recorded. Gynecological HistoryNo gynecological history recorded. Obstetrics History GPAL:G 0 P 0 0 0 0 Past Encounters Encounter ID Performer Location Encounter Start Date Encounter Closed Date Diagnosis/Indication Diagnosis SNOMED-CT Code Diagnosis ICD10 Code Diagnosis Note [id number] CRISTINA VILLARREAL MD [facility] [address] [address] 09/19/2024 10:49:44 09/19/2024 12:22:40 M ni re's disease 06288968 H81.01 Sensorineu ral hearing loss of bilateral ears 269875975 H90.3 Allergic rhinitis 436695 04 J30.9 J30.1 J30.2 difficulty to consider shot program as she travels to [place] every year for several months [id number] JERMAINE JULIO [facility] [address] [address] 09/19/2024 11:30:04 09/22/2024 07:48:41 Sensorineural hearing loss of bilateral ears 202984410 H90.3 Audiologic al evaluation results: Right ear: Moderate through 4 kHz sloping to moderately severe sensorineu ral hearing loss with fair word recognitio n. Left ear: Did not test today. Tympanomet ry: Right Ear:Type A [id number] JERMAINE JULIO [facility] [place] [address] [place] [address] [address] [place] [address] 03/10/2025 13:47:35 03/11/2025 10:47:37 Sensorineural hearing loss of bilateral ears 680485977 H90.3 Patient came with: Mickey is retired. Demos used: Infinio 90 Sphere Patient motivation : Pretty good. She would really like an in the ear aid for her right ear. I have discussed pros and cons with her re: batteries, BT, and that an ITC would not be appropriat e for her left ear. Purchased? NO. She only has an [place] network benefit with her [place] [employer]. Gave her hear audios, medical clearance and some suggestion s of places she could call to pursue a hearing aid. Health Concerns Section Related Observation LastModified by Organization Detai ls LastModified Time None Recorded Concern Status LastModified by Organization Details LastModified Time None Recorded Advance Directives Directive None Recorded Payers Insurance Date Sequence Insurance Name Policy Number Policy [place] Covered Member ID [place] Member ID Guarantor Name 03/10/2025 2 BCBS-ID LARISA KINCAID [id number] K Muriel N Huggins [id number] Muriel Matias ToneyHuggins 03/10/2025 1 MEDICARE B-[place]: [employer] Muriel N Huggins [id number] Murielsamantha Huggins Notes Date Note Type Note Provider Name and Address Organization Details Recorded Time 09/19/2024 text/html patient of Dr Acosta of right side menieresmost recent flare up was about June 2024+nausea, duration about 3 hours. needed ER visit to get N/V under controlif uses dramamine it can improve within 90 minutesgenerally very good with limited salt intakeno HTN hxMRI 06/12/22 Rayus - no retrocochlear pathology Right sided menieres using dramamine PRN and meclizine PRN if at homewas told to not use dyazide due to hypokalemia allergy management - testing in 2021 did not move forward with SCIT.using azelastine, zyrtec but wishes better control PV 02/22/24 Joe - offered dyazide and meclizine for meniere flare up management CRISTINA VILLARREAL MD [facility], [place], [address], [facility] - [facility] 09/19/2024 11:57:50 OBGyn Episode No OBEpisode recorded.
== END 2025-05-15 13:27 | disposition home or self-care (01) ==
LOC: HO.HMCC 12:22
PROVIDERS: PCP Internal Medicine; Visit Provider Internal Medicine
DX: M17.11 Unilateral primary osteoarthritis, right knee (principal); E03.9 Hypothyroidism, unspecified; E11.9 Type 2 diabetes mellitus without complications; I10 Essential (primary) hypertension

== ENCOUNTER → 2025-05-15 12:21 | Outpatient (BNVA) | payer MEDICARE, BC, SELFPAY | PROVIDERS: PCP Internal Medicine; Visit Provider Internal Medicine | DX: M17.11 Unilateral primary osteoarthritis, right knee (principal); E03.9 Hypothyroidism, unspecified; E11.9 Type 2 diabetes mellitus without complications; I10 Essential (primary) hypertension | CPT/HCPCS: 99212 ==

== ENCOUNTER 2025-11-09 12:55 | Outpatient (AMB) | payer MEDICARE, BC, SELFPAY ==
--- OUTSIDE RECORDS SUMMARY | 2024-08-13 08:15 | XMS_ITS ---
Author Organization [facility] Address [address] [place] [address] Care Team Providers Care Legal Associate Name Role Phone Marielle Price Primary Care Provider CORINNE Luu Unavailable [phone] CARLOS ROUSE Unavailable [phone] REASON FOR VISIT pt here for A1C; the result came 6.2% Medications Medication SIG (Take, Route, Frequency, Duration) Notes Start Date End Date Status Atorvastatin Calcium 40 MG Tablet 1 tablet Orally Once a day Active Citalopram Hydrobromide 20 MG Tablet 1 tablet Orally Once a day Active Ozempic (0.25 or 0.5 MG/DOSE) 2 MG/3ML Solution Pen-injector Inject 0.25 mg once weekly Subcutaneous; Duration: 28 days 08/07/2024 Active Meclizine HCl 25 MG Tablet 1 tablet as n eeded Orally every 12 hrs Not-Taking Simethicone 125 MG Tablet Chewable 1 tablet after meals and at bedtime as needed Orally Four times a day Not-Taking Levothyroxine Sodium 75 MCG Tablet 1 tablet in the morning on an empty stomach Orally Once a day Active Azelastine HCl 0.1 % Solution 1 puff in each nostril Nasally Twice a day Active Omeprazole 20 MG Capsule Delayed Release 1 capsule 30 minutes before morning meal Orally Once a day Active Loratadine 10 MG Tablet 1 tablet Orally Once a day Active Celecoxib 200 MG Capsule 1 capsule with food Orally Once a day Active Vitamin D High Potency 25 MCG (1000 UT) Capsule 1 capsule Orally Once a day Active Melatonin 10-10 MG Tablet Extended Release as directed Orally Activ e Encounters Encounter Location Date Provider Diagnosis [facility] [address] [address] 08/13/2024 CARLOS ROUSE Type 2 diabetes mellitus without complication, unspecified whether local company intermodal truck driver insulin use E11.9 Assessments Encounter Date Diagnosis (ICD Code) Assessment Notes Treatment Notes Treatment Clinical Notes Section Notes 08/13/2024 Type 2 diabetes mellitus without complication, unspecified whether local company intermodal truck driver insulin use (ICD-10 - E11.9) Plan Of Treatment No Information Progress Notes * Muriel DALYDOB: 4 (70 yo F)Acc No.[id number]:08/13/2024 Progress Note Patient: Muriel Frazier Provider: Shiv ROUSE NP :1955 A ge:69 Y S ex:Female Date:08/13/2024 Address:[address] [place], [place] [id number] Pcp:Marielle Price Subjective: * Chief Complaints: * p t here for A1C; the result came 6.2% * Medications: T akingMelatonin 10-10 MG Tablet Extended Release as directed Orally Vitamin D High Potency 25 MCG (1000 UT) Capsule 1 capsule Orally Once a day Celecoxib 200 MG Capsule 1 capsule with food Orally Once a day Loratadine 10 MG Tablet 1 tablet Orally Once a day Omeprazole 20 MG Capsule Delayed Release 1 capsule 30 minutes before morning meal Orally Once a day Azelastine HCl 0.1 % Solution 1 puff in each nostril Nasally Twice a day Levothyroxine Sodium 75 MCG Tablet 1 tablet in the morning on an empty stomach Orally Once a day Citalopram Hydrobromide 20 MG Tablet 1 tablet Orally Once a day Atorvastatin Calcium 40 MG Tablet 1 tablet Orally Once a day Ozempic (0.25 or 0.5 MG/DOSE) 2 MG/3ML Solution Pen-injector Inject 0.25 mg once weekly Subcutaneous Taking Melatonin 10-10 MG Tablet Extended Release as directed Orally Taking Vitamin D High Potency 25 MCG (1000 UT) Capsule 1 capsule Orally Once a day Taking Celecoxib 200 MG Capsule 1 capsule with food Orally Once a day Taking Loratadine 10 MG Tablet 1 tablet Orally Once a day Taking Omeprazole 20 MG Capsule Delayed Release 1 capsule 30 minutes before morning meal Orally Once a day Taking Azelastine HCl 0.1 % Solution 1 puff in each nostril Nasally Twice a day Taking Levothyroxine Sodium 75 MCG Tablet 1 tablet in the morning on an empty stomach Orally Once a day Taking Citalopram Hydrobromide 20 MG Tablet 1 tablet Orally Once a day Taking Atorvastatin Calcium 40 MG Tablet 1 tablet Orally Once a day Taking Ozempic (0.25 or 0.5 MG/DOSE) 2 MG/3ML Solution Pen-injector Inject 0.25 mg once weekly Subcutaneous Not- TakingSimethicone 125 MG Tablet Chewable 1 tablet after meals and at bedtime as needed Orally Four times a day Meclizine HCl 25 MG Tablet 1 tablet as needed Orally every 12 hrs Not-Taking Simethicone 125 MG Tablet Chewable 1 tablet after meals and at bedtime as needed Orally Four times a day Not-Taking Meclizine HCl 25 MG Tablet 1 tablet as needed Orally every 12 hrs Assessment: * Assessment: 1. T ype 2 diabetes mellitus without complication, unspecified whether local company intermodal truck driver insulin use - E11.9 Plan: * Procedure Codes: 8 3036 GLYCATED HEMOGLOBIN TEST, Modifiers: QW Billing Information: * Procedure Codes: 32496 GLYCATED HEMOGLOBIN TEST. Modifiers: QW Care Plan Details* * Electronic signature of JACKLYN ROUSE on 11/09/2025 at 04:09 PM EST Sign off status: Pending * Provider: Shiv ROUSE NP Date: 0 08/13/2024 Generated for Nikita bower/Kg/Solitario on: 1 01/10/2025 04:09 PM EST
--- OUTSIDE RECORDS SUMMARY | 2024-08-19 07:45 | XMS_ITS ---
[facility] Organization [facility] Address [address] [place] [address] Care Team Providers Care Auriculotherapist Name Role Phone Marielle Price MD Primary Care Provider UnavailAshlie Thomas Unavailable [phone] Doni Pantoja Unavailable [phone] Medications Medication SIG (Take, Route, Frequency, Duration) Notes Start Date End Date Status Zantac 300 MG Orally Not-Ta sienna Cephalexin 500 MG 1 tablet Orally Twic e a day; Duration: 10 day(s) Not-Taking Melatonin Not-Taking Ambien 5 MG 1 tablet at bedtime Orally Once a day Not-Taking Cephalexin 500 MG 1 capsule Orally charley ry 6 hrs; Duration: 5 day(s) Not-Taking Physical Therapy . . . 2-3x/week; Duration: 3-4 weeks Active Ciclopirox Olamine 0.77 % 1 application to affected area Externally to feet Twice a day; Duration: 30 days Not-Taking Ciclopirox Olamine 0.77 % 1 application Externally Twice a day; Duration: 30 days Not-Taking Farxiga 5 MG 1 tablet Orally Once a day Not-Taking PriLOSEC Not-Taking Holden-3 Not-Taking Dexilant 60 MG 1 capsule Orally Onc e a day Not-Taking CeleBREX 200 MG 1 capsule Orally Onc e a day; Duration: 30 day(s) Not-Taking Mounjaro Not-Taking Night Splint AFO - L1930 as directed 05/27/2024 Active Lactaid Active Ciclopirox Olamine 0.77 % 1 application to affected area Externally Twice a day to effected areas on feet; Duration: 30 days 05/27/2024 Active Multivitamins Active Lipitor 20 MG 1 tablet Orally Once a day Active Levothyroxine Sodium Active Omeprazole Active Diclofenac Sodium 2.5 % as directed Exte rnally Twice a day as needed; Duration: 30 days 05/09/2024 Active Ciclopirox Olamine 0.77 % 1 application Externally Twice a day; Duration: 30 days Active CeleXA 10 MG Orally Active Calcium Active Encounters Encounter Location Date Provider Diagnosis [facility] [address] [address] 08/19/2024 Doni Pantoja Metatarsalgia, right foot M77.41 ; Metatarsalgia, left foot M77.42 ; Other hammer toe(s) (acquired), right foot M20.41 ; Other hammer toe(s) (acquired), left foot M20.42 ; Pain in left foot M79.672 ; Pain in right foot M79.671 ; Plantar fascial fibromatosis M72.2 and Tinea pedis B35.3 Assessments Encounter Date Diagnosis (ICD Code) Assessment Notes Treatment Notes Treatment Clinical Notes Section Notes 08/19/2024 Metatarsalgia, right foot (ICD-10 - M77.41) 08/19/2024 Metatarsalgia, left foot (ICD-10 - M77.42) 08/19/2024 Other hammer toe(s) (acquired), right foot (ICD-10 - M20.41) 08/19/2024 Other hammer toe(s) (acquired), left foot (ICD-10 - M20.42) 08/19/2024 Pain in left foot (ICD-10 - M79.672) 08/19/2024 Pain in right foot (ICD-10 - M79.671) 08/19/2024 Plantar fascial fibromatosis (ICD-10 - M72.2) 08/19/2024 Tinea pedis (ICD-10 - B35.3) Plan Of Treatment Medication Medication Name Sig Start Date Stop Date Notes Physical Therapy . . . 2-3x/week; Duration: 3-4 weeks Next Appt Details Follow Up: 2 Months, Reason: Provider Name:Ashlie xiong, 03/26/2026 11:00:00 AM, [address] [facility], [address], [place], [address], Procedure Notes * Category Sub-Category Detail Notes Injection Tendon Sheath or Fascia 40801, J 6202 Injection - Plantar Fascia w/ mixture of Celestone Soluspan 3mg and 1cc 1 percent Xylocaine Plain anes. utilizing aseptic technique. The patient tolerated the procedure well. A dry sterile dressing was applied. Post injection instructions were dispensed, verbally discussed, and confirmed understood by the patient. I explained that a steroid and local anesthetic injections are administered to relieve pain and inflammation and thereby meant to improve function. I explained the possible complications including but not limited to signs/symptoms of steroid flare, infection, bruising, atrophy, discoloration of skin, change/deviation in toe position, and that additional injections may be necessary, Patient relates post-procedural pain assessment improved at ( 0-1) out of 10, RIGHT foot--plm heel Progress Notes * ADDYMuriel NDOB: [birth year] (70 yo F)Acc No.[id number]:08/19/2024 Progress Notes Patient: Muriel ELLIOTT N Provider: Elicia Montelongo DPM :1955 A ge:69 Y S ex:Female Date:08/19/2024 Address:[address] [place] [address] [id number] Pcp:Marielle Price MD Subjective: * Chief Complaints: * * HPI: F oot Pain: Nature: s harp, aching. Location B ottom, B/L, L>R. Duration: s everal months. Onset/Cause: o veruse. Course: i mproved. Aggrevated: a ny pressure, standing, walking, barefoot walking. Treatments: r est, voltaren gel and oral ; cortisone inj gave some r elief; pedag insole did not help; PT--12 total tx's. Quality/Severity 2 , scale 1-10. H eel pain: Nature: b urning, sharp pain. Location: P roximal plantar aspect of Heel, RIGHT. Onset/Cause: c ompensation for left foot pain. Aggravated: w alking first thing in the morning/after rest.? Severity/Quality: S tates 6 out of 10. * ROS: G eneral/Constitutional: Nausea d enies. V omiting d enies. H lizeth Thirst d enies. L oss appetite d enies. C hills d enies. F atigue d enies.?Fever d enies. N ight Sweats d enies. U nexplained weight loss d enies. O phthalmologic: Blurred vision d enies. R ed eye d enies. ? H EENTM: Dentures d enies. D izziness d enies. G lasses/contacts a dmits. R etinopathy d enies. B lurred/double vision d enies. T MJ?denies. D ischarge/drainage d enies. I mplants d enies. H savita of hearing denies. D ifficulty chewing/swallowing/speaking d enies. N ose bleeds d enies.?Sore mouth d enies. S wollen glands d enies. R espiratory: On Oxygen d enies. P neumonia/pleurisy d enies.?Bronchitis d enies. E mphysema d enies. C oughing d enies. C ough blood?denies. S hortness of breath d enies. W heezing d enies. C ardiovascular: Pacemaker d enies. M 1ST PRESSMAN ON WEB PRESS d enies. W PW d enies. C HF d enies. H eart attack d enies. S eptal defect d enies. R apid beat d enies. C hest pain d enies. A trial Fib. d enies. M urmur/Palpitations d enies. G astrointestinal: Hemorrhoids d enies. S tomach/Abdominal pain d enies. D ark blood stool d enies. I rritable bowel d enies. C onstipation d enies. D iarrhea d enies. V omiting d enies. H ematology: Swelling d enies. B ruising d enies. B leeding problem d enies. G enitourinary: Blood urine d enies. F requent/Painfu/urination/bladder control d enies. K idney stones d enies. I nfection (UTI) d enies. N ephropathy d enies. M usculoskeletal: Hammertoes a dmits. B unions a dmits. S coliosis/kyphosis d enies. M uscle cramps / walking d enies. G eneralized aches and pains?denies. W eakness d enies. I nteg.: Grey d enies. S cars d enies. C orns/calluses?denies. I ngrown nails a dmits. P ainful nails d enies. R ashes d enies. N eurologic: Difficulty sleeping d enies. B ipolar d enies. B rain disorder d enies. B alance trouble d enies. C onfusion d enies. F ainting/blackouts d enies. H eadache d enies. T remors d enies. * Medical History: * Medications: T aking Calcium , Taking CeleXA 10 MG Tablet Orally , Taking Ciclopirox Olamine 0.77 % Cream 1 application Externally Twice a day , Taking Diclofenac Sodium 2.5 % Cream as directed Externally Twice a day as needed , Taking Omeprazole , Taking Lactaid , Taking Levothyroxine Sodium , Taking Lipitor 20 MG Tablet 1 tablet Orally Once a day , Taking Multivitamins , Taking Ciclopirox Olamine 0.77 % Cream 1 application to affected area Externally Twice a day to effected areas on feet , Taking Night Splint AFO - L1930 as directed , Taking Physical Therapy . . . . 2-3x/week , Not- Taking/PRN Mounjaro , Not-Taking/PRN CeleBREX 200 MG Capsule 1 capsule Orally Once a day , Not-Taking/PRN Dexilant 60 MG Capsule Delayed Release 1 capsule Orally Once a day , Not-Taking/PRN Holden-3 , Not-Taking/PRN PriLOSEC , Not-Taking/PRN Farxiga 5 MG Tablet 1 tablet Orally Once a day , Not-Taking/PRN Ciclopirox Olamine 0.77 % Cream 1 application Externally Twice a day , Not-Taking/PRN Ciclopirox Olamine 0.77 % Cream 1 application to affected area Externally to feet Twice a day , Not-Taking/PRN Cephalexin 500 MG Capsule 1 capsule Orally every 6 hrs , Not-Taking/PRN Ambien 5 MG Tablet 1 tablet at bedtime Orally Once a day , Not-Taking/PRN Melatonin , Not-Taking/PRN Cephalexin 500 MG Tablet 1 tablet Orally Twice a day , Not- Taking/PRN Zantac 300 MG Tablet Orally Objective: * Vitals: * Examination: O phthalmology Referral: DIABETES EYE EXAM D iabetic Retinopathy Screening: Y es 07/2023 G eneral Examination: GENERAL APPEARANCE: p leasant, alert, well nourished, well developed, well hydrated, with good attention to hygene/body habitus, and in no acute distress. ORIENTED: p erson,place, and time. N eurological: SENSORY: N eurological exam is normal, pain sensation normal, vibration sensation intact, pinprick sensation is normal in the lower extremities, denies, tingling, burning, anesthesia, paresthesia, hyperesthesia, B/L, Neurological exam demonstrates pop plm right heel and no pop of mtpj's cory. TINEL'S COMPRESSION: N egative tarsal tunnel, isreal pedis, and medial calcaneal nerves B/L. BABINSKI REFLEX: a bsent. N euroma Pain: PALPATION: N o interspace pain noted on palpation. ? V ascular: DP PULSES (B): 2 /4, B/L. PT PULSES (B): 2 /4, B/L. CAPILLARY FILL TIME: 3 secs. per digit, B/L. TROPHIC CONDITION-TEXTURE/ELASTICITY/TURGOR/HAIR GROWTH (B):?normal, B/L. TEMPERTURE GRADIENT (C): w arm to cool, proximal to distal, B/L. PIGMENTATION: n ormal, B/L. EDEMA (C): n o edema. TELANGECTASIA: a bsent. VARICOSITIES: a bsent. D ermatologic: SKIN FINDINGS: Skin shows sign(s) of, erythema, scaling, in a moccasin fashion, no fissure(s) present, B/L. O rthopedic: MUSCLE STRENGTH: 5 /5 all groups in a symmetrical fashion , B/L. FOOT MORPHOLOGY: Pes Cavus structure, B/L. DIGITAL DEFORMITIES: Digital contracture, PIPJ, 2-5 B/L, incompl-reducible with WB, or to push-up test, no over, nor underlapping. H eel Pain: INSPECTION: Pain on Palpation to Plantar Fascia med. and central bands, intrinsic musc., infra-calcaneal bursa, and med calc tubercle, RIGHT foot--plm. ? Assessment: * Assessment: 1. M etatarsalgia, right foot - M77.41 2 . M etatarsalgia, left foot - M77.42 (Primary) 3 . O ther hammer toe(s) (acquired), right foot - M20.41 4 . O ther hammer toe(s) (acquired), left foot - M20.42 5 . P ain in left foot - M79.672 6 . P ain in right foot - M79.671 7 . P lantar fascial fibromatosis - M72.2 8 . T inea pedis - B35.3 Plan: * Treatment: * Procedures: I njection: Tendon Sheath or Fascia 2 0550, J0702 Injection - Plantar Fascia w/ mixture of Celestone Soluspan 3mg and 1cc 1 percent Xylocaine Plain anes. utilizing aseptic technique. The patient tolerated the procedure well. A dry sterile dressing was applied. Post injection instructions were dispensed, verbally discussed, and confirmed understood by the patient. I explained that a steroid and local anesthetic injections are administered to relieve pain and inflammation and thereby meant to improve function. I explained the possible complications including but not limited to signs/symptoms of steroid flare, infection, bruising, atrophy, discoloration of skin, change/deviation in toe position, and that additional injections may be necessary, Patient relates post-procedural pain assessment improved at ( 0-1) out of 10, RIGHT foot--plm heel. * Procedure Codes: 2 0550 INJ TENDON SHEATH/LIGAMENT, Modifiers: XS , J0702 INJ BETAMETHSN ACTAT&SOD PHOSPH-3MG * Follow Up: 2 Months * Images: * The named appointment provid er may or may not be the originator of this progress note, and it is not deemed complete until electronically signed by the appointment provider. Sign off status: Pending * Provider: Elicia Montelongo DPM Date: Generated for Nikita bower/Kg/eTransmitting on: 1 01/10/2025 04:08 PM EST History and Physical Notes * HPI (History of Present Illness) Category Sub-Category Detail Notes Category Not es Heel pain Nature: burning, sharp pain Severity/Quality: States 6 out of 10 Location: Proximal plantar asp ect of Heel, RIGHT Onset/Cause: compensation for lef t foot pain Aggravated: walking first thing in the morning/after rest Foot Pain Aggrevated: any pressure, standing, walk ing, barefoot walking Onset/Cause: overuse Course: improved Duration: several months Nature: sharp, aching Treatments: rest, voltaren gel a nd oral ; cortisone inj gave some relief; pedag insole did not help; PT--12 total tx's Quality/Severity 2, scale 1-10 Location Bottom, B/L, L>R Examination Category Sub-Category Detail Notes Category Not es Neuroma Pain PALPATION: No interspace pain noted on palpation Neurological SENSORY: Neurological exa m is normal, pain sensation normal, vibration sensation intact, pinprick sensation is normal in the lower extremities, denies, tingling, burning, anesthesia, paresthesia, hyperesthesia, B/L, Neurological exam demonstrates pop plm right heel and no pop of mtpj's cory BABINSKI REFLEX: absent TINEL'S COMPRESSION: Negative tarsal jeffery adriane, isreal pedis, and medial calcaneal nerves B/L Dermatologic SKIN FINDINGS: Skin shows sign( s) of, erythema, scaling, in a moccasin fashion, no fissure(s) present, B/L Orthopedic FOOT MORPHOLOGY: Pes Cavus structure, B/L DIGITAL DEFORMITIES: Digital contracture , PIPJ, 2-5 B/L, incompl-reducible with WB, or to push-up test, no over, nor underlapping MUSCLE STRENGTH: 5/5 all groups in a symmetrical fashion , B/L General Examination GENERAL APPEARANCE: pleasant , alert, well nourished, well developed, well hydrated, with good attention to hygene/body habitus, and in no acute distress ORIENTED: person,place, and ti me Ophthalmology Referral DIABETES EYE EXAM Diabeti c Retinopathy Screening:: Yes 07/2023 Vascular DP PULSES (B): 2/4, B/L PT PULSES (B): 2/4, B/L CAPILLARY FILL TIME: 3 secs. per digit, B/L TEMPERTURE GRADIENT (C): warm to cool, p roximal to distal, B/L TROPHIC CONDITION-TEXTURE/ELASTICITY/TURGOR/HAIR GROWTH (B): normal, B/L EDEMA (C): no edema TELANGECTASIA: absent VARICOSITIES: absent PIGMENTATION: normal, B/L Heel Pain INSPECTION: Pain on Palpatio n to Plantar Fascia med. and central bands, intrinsic musc., infra-calcaneal bursa, and med calc tubercle, RIGHT foot--plm
--- OUTSIDE RECORDS SUMMARY | 2024-09-18 08:45 | XMS_ITS ---
Author Organization [facility] Address [address] [place] [address] Care Team Providers Care Flask Cleaner Name Role Phone Marielle Price MD Primary Care Provider Ashlie Briseno [phone] Encounters Encounter Location Date Provider Diagnosis [address] [address] 09/18/2024 Ashlie Luis Plan Of Treatment Next Appt Details Provider Name:Ashlie xiong, 03/26/2026 11:00:00 AM, [address] [place] [address], [phone], Progress Notes * Muriel DALY NDOB: [birth year] (70 yo F)Acc No.[id number]:09/18/2024 Progress Notes Patient: Kevin ELLIOTTsamantha Salcedo Provider: Lily Luis DPM :1955 A ge:69 Y S ex:Female Date:09/18/2024 Address:[address] [place] [address] odalis [id number] Pcp:Marielle Price MD Subjective: * Chief Complaints: * * Medical History: Objective: * Vitals: Assessment: Plan: * Treatment: * Images: * The named appointment provid er may or may not be the originator of this progress note, and it is not deemed complete until electronically signed by the appointment provider. Sign off status: Pending * Provider: Lily Luis DPM Date: 1 Generated for Nikita bower/Kg/Solitario on: 01/10/2025 04:08 PM EST
--- OUTSIDE RECORDS SUMMARY | 2025-09-29 09:45 | XMS_ITS ---
Author Organization [facility] Address [address] [place] [address] Care Team Providers Care Consulting Networking Engineer Name Role Phone Marielle Price MD Primary Care Provider Ashlie Briseno Unavailable [phone] Ade Wolf [phone] Encounters Encounter Location Date Provider [facility] [address] [place] [address] 09/29/2025 Ade Wolf Plan Of Treatment Next Appt Details Provider Name:Ashlie xiong, 03/26/2026 11:00:00 AM, [address] [facility], [address], [address], Progress Notes * Murile DALY NDOB: [birth year] (70 yo F)Acc No.[id number]:09/29/2025 Progress Note Patient: Kevin ELLIOTTsamantha Salcedo Provider: Zoie Wolf DPM :1955 A ge:70 Y S ex:Female Date:09/29/2025 Address:[address] [place], [place] [phone] Pcp:Marielle Price MD Subjective: * Chief Complaints: * * Medical History: Objective: * Vitals: Assessment: Plan: * Treatment: * Images: * The named appointment provid er may or may not be the originator of this progress note, and it is not deemed complete until electronically signed by the appointment provider. Sign off status: Pending * Provider: Zoie Wolf DPM Date: 11/29/2024 Generated for Nikita Reyes/Solitario on: 01/10/2025 04:08 PM EST
--- NOTE | 2025-11-09 13:27 | A.OFFPC_ITS ---
Vital Signs 11/09/25 13:28 Height 5 ft 3 in Weight 185 lb BMI 32.8 BP 126/74 Blood Pressure Location Lt brachial Position Sitting Respiration 17 Pulse 85 Pulse Source Pulse Oximeter Pulse Oximetry (%) 98 Oxygen Delivery Method Room Air Intake Visit Reasons: 6m follow up Intake Note: Pt is here today for 6 monts follow up visit. Channel Executive Required: No Allergies tirzepatide (From [facility]) Adverse Reaction (Intermediate, Verified 11/09/25 13:39) Abdominal Pain dapagliflozin (From [facility]) Adverse Reaction (Verified 11/09/25 13:39) candidasis metformin Adverse Reaction (Verified 11/09/25 13:39) Abdominal Pain Medication List - Last Reconciled 11/09/25 by Marielle Price MD albuterol sulfate 90 mcg/actuation (ProAir HFA) 2 puffs inhalation QID PRN amoxicillin 2,000 mg (4 x 500 mg) PO ONCE atorvastatin 40 mg PO BEDTIME azelastine 137 mcg (0.137 mL) intranasal BID blood sugar diagnostic (FreeStyle Lite Strips) test blood sugar once a day blood-glucose meter (FreeStyle Lite Meter kit) As directed celecoxib 200 mg PO DAILY cholecalciferol (vitamin D3) 25 mcg PO DAILY citalopram 20 mg PO DAILY CPAP (CPAP Machine/Device) Pressure -10cm of H2O Nasal pillows and all needed supplies diclofenac sodium 1% 2 grams topical QID flash glucose sensor (FreeStyle Na 2 Sensor kit) As directed fluticasone propionate 110 mcg/actuation 2 puffs inhalation BID fluticasone propionate 50 mcg/actuation 1 spray intranasal DAILY lancets (FreeStyle Lancets) test blood sugar once a day levothyroxine (Synthroid) 75 mcg PO DAILY loratadine 10 mg PO DAILY lorazepam 0.5 mg PO DAILY PRN mometasone 0.1% 1 appl topical DAILY omeprazole 40 mg PO BID scopolamine base 1 patch transdermal Q3D PRN triamterene-hydrochlorothiazid 37.5-25 mg 1 tab PO DAILY zolpidem 5 mg PO BEDTIME PRN Tobacco use date assessed: 11/09/25 Dental Screening Dental Screen Date: 02/13/25 HPI 6m follow up HPI Details Pt presents for HTN, hyperlipid, type 2 diabetes stable on current medications PFSH Medical History DM type 2 (diabetes mellitus, type 2) Asthma Cough Shoulder pain, bilateral Neck pain Hyperglycemia History of mammogram Sleep apnea GERD (gastroesophageal reflux disease) Chronic depression Hypothyroidism Hyperlipidemia Surgical History Status post right knee replacement H/O colonoscopy History of esophagogastroduodenoscopy (EGD) No pertinent past surgical history Family History Mother Breast cancer Osteoporosis Social History Housing: House Alcohol intake: current Alcohol intake frequency: holidays/special occasions only Patient Tobacco Use Status: Never used Tobacco e-Cigarette/Vaping Use: Never Used service: No Current occupational status: retired Cognitive needs: No Hearing needs: No Vision needs: Yes Questionnaire Thrive Questionnaire Date Thrive assessed: 02/10/25 I am a: Patient What is your living situation today?: I have a steady place to live Within the past 12 months, did the food you bought not last and you didn't have the money to get more?: Never true Within the past 12 months, did you worry whether your food would run out before you got money to buy more?: Never true Do you have trouble paying for medicines?: No Do you have trouble getting transportation to medical appointments?: No Do you have trouble paying your heating and electricity bill?: No Do you have trouble taking care of your child, family member or friend?: No Do you have trouble with day-to-day activities such as bathing, preparing meals, shopping, managing finances, etc.?: No Are you currently unemployed and looking for a job?: No Are you interested in more education?: No Please select the resources that you would like help with: None Currently or been in a relationship where the following occur: No concerns reported THRIVE Score: 0 ROSIE-7 AMB Questionnaire ROSIE-7 Date ROSIE - 7 assessed: 02/13/25 Source: Developed by Drs. Philip Rivas, Carri Rowley, Frank Aparicio and colleagues, with an educational marilia from [employer]. Review of Systems Const All systems reviewed & are unremarkable except as noted in HPI and below Eyes Reports no additional complaints ENT Reports no additional complaints Card Reports no additional complaints Resp Reports no additional complaints GI Reports no additional complaints Physical exam (Primary Care) Vital Signs: Last Vital Signs Pulse 85 11/09/25 13:28 Resp 17 11/09/25 13:28 BP 126/74 11/09/25 13:28 Pulse Ox 98 11/09/25 13:28 Oxygen Delivery Method Room Air 11/09/25 13:28 BMI result Body Mass Index 32.8 Tobacco/Smoking Status: Tobacco use Status Tobacco use date assessed 11/09/25 11/09/25 13:41 Patient Tobacco Use Status Never used Tobacco 11/09/25 13:28 e-Cigarette/Vaping Use Never Used 11/09/25 13:28 Thrive Assessment: Date of Thrive Assessment Date Thrive assessed 02/10/25 11/09/25 13:28 Currently or been in a relationship where the following occur: No concerns reported Const General: no acute distress HENMT Head: Yes normal to inspection Resp Effort & Inspection: normal respiratory effort Auscultation: clear to auscultation bilaterally Cardio Rhythm: regular rhythm Heart sounds: S1 normal heart sound present and S2 normal heart sound present GI Inspection: Yes normal to inspection Palpation (GI): Soft to palpation Percussion: Yes normal to percussion Coding Level of Care Code Est Pt Level 4 (12471) Diagnoses Hyperlipidemia E78.5 Hypothyroidism E03.9 DM type 2 (diabetes mellitus, type 2) E11.9 HTN (hypertension) I10 Assessment & Plan Assessment & Plan (1) Hyperlipidemia: Code(s): E78.5 - Hyperlipidemia, unspecified Category: Medical Plan: Increase atorvastatin to 80 mg a day for the goal of LDL less than 100 (2) Hypothyroidism: Code(s): E03.9 - Hypothyroidism, unspecified Category: Medical Plan: Continue levothyroxine (3) DM type 2 (diabetes mellitus, type 2): Comment: Farxiga caused lightheadedness, frequent candidasis, Mounjaro cause nausea and vomiting Code(s): E11.9 - Type 2 diabetes mellitus without complications Category: Medical Plan: A1c is 6.1, ADA diet regular physical activity weight loss discussed with the patient. She refused medications (4) HTN (hypertension): Code(s): I10 - Essential (primary) hypertension Category: Medical Plan: Continue current medications follow-up in 6 months with a fasting labs before Orders: Orders Comprehensive [place]. Panel Fast 6 Months E03.9 - Hypothyroidism, unspecified, E11.9 - Type 2 diabetes mellitus without complications, E78.5 - Hyperlipidemia, unspecified, I10 - Essential (primary) hypertension Lipid Panel 6 Months E03.9 - Hypothyroidism, unspecified, E11.9 - Type 2 diabetes mellitus without complications, E78.5 - Hyperlipidemia, unspecified, I10 - Essential (primary) hypertension Complete Blood Count Auto Diff 6 Months E03.9 - Hypothyroidism, unspecified, E11.9 - Type 2 diabetes mellitus without complications, E78.5 - Hyperlipidemia, unspecified, I10 - Essential (primary) hypertension Hemoglobin A1c 6 Months E03.9 - Hypothyroidism, unspecified, E11.9 - Type 2 diabetes mellitus without complications, E78.5 - Hyperlipidemia, unspecified, I10 - Essential (primary) hypertension TSH reflex Free T4 6 Months E03.9 - Hypothyroidism, unspecified, E11.9 - Type 2 diabetes mellitus without complications, E78.5 - Hyperlipidemia, unspecified, I10 - Essential (primary) hypertension Microalbumin, Random (w Creat) 6 Months E03.9 - Hypothyroidism, unspecified, E11.9 - Type 2 diabetes mellitus without complications, E78.5 - Hyperlipidemia, unspecified, I10 - Essential (primary) hypertension Medications: New atorvastatin (Lipitor) 80 mg PO DAILY 90 tabs 3RF loratadine 10 mg PO DAILY 90 tabs 3RF Discontinued atorvastatin Discontinued Reason: Doctor's Order 40 mg PO BEDTIME 90 tabs 1RF
[2025-11-09 13:28] VITALS: BP 126/74; PULSE 85; RESP 17; O2SAT 98; BMI 32.8
--- OUTSIDE RECORDS SUMMARY | 2025-11-09 16:09 | XMS_ITS | Clinical Summary ---
Author Organization [facility] [address] [facility] Address [address] [place] [address] Phone Care Team Providers Care Career Development Consultant Name Role Phone Marielle Price MD Primary Care Provider [phone] Allergies Active Allergy Reactions Criticality Noted Date Comments Hay Fever And Allergy Relief 025 Medications zolpidem (AMBIEN) 10 mg tablet TOME RAHEEL TABLETA POR LA BOCA DIARIAMENTE A LA HORA DE ACOSTARSE CUANDO SEA NECESARIO Active levothyroxine (SYNTHROID, LEVOTHROID) 75 mcg tablet Take 1 tablet (75 mcg total) by mouth 1 (one) time each day. Active fluticasone propionate (FLONASE) 50 mcg/actuation nasal spray Hayes 2 sprays every day by intranasal route as directed for 30 days, for 30. 4 Active fexofenadine (Leydi Allergy) 60 mg tablet Active citalopram (CeleXA) 40 mg tablet Take 1 tablet (40 mg total) by mouth 1 (one) time each day. 5 Active cholecalciferol (VITAMIN D-3) 25 mcg (1,000 unit) tablet Active atorvastatin (LIPITOR) 40 mg tablet Take 1 tablet (40 mg total) by mouth. 9 Active omega 2-qww-gxg-fish oil 1,000 mg (250 mg-750 mg)/5 mL liquid Take by mouth. 9 Active multivitamin tablet Take by mouth. 2 Active ubzpjboz-khgh-pz vzl-hbbj-fjxkr 100 mg-150 mg- 50 mg-150 mg capsule Take 500 mg by mouth. 2 Active magnesium K-flcnkv-wbblojo mide 42 mg (500 mg)- 250 mg tablet extended release Active melatonin 5 mg tablet Active coenzyme Q-10 30 mg capsule Take 1 capsule (30 mg total) by mouth 1 (one) time each day. Active rgsh-uzaf-uzj-desai w-ebv-aiyz-hor [phone] mg tablet Take by mouth. Activ e polyethylene glycol (MIRALAX) 17 gram packetIndication s:Chronic constipation Take 17 g by mouth 1 (one) time each day. 1530 g 3 5 02/26/20 26 Active simethicone (MYLICON) 125 mg chewable tabletIndication s:Constipation Chew 1 tablet (125 mg total) 2 (two) times a day. 180 tablet 3 5 Active omeprazole (PriLOSEC) [address] capsuleIndicatio ns:Gastroesophag eal reflux disease without esophagitis Take 1 capsule (20 mg total) by mouth 3 (three) times a day. Do not crush or chew. 270 each 3 5 08/06/20 26 Active sucralfate (CARAFATE) 100 mg/mL suspensionIndica tions:Gastroesop hageal reflux disease without esophagitis Take 10 mL (1 g total) by mouth 3 (three) times a day before meals. 900 mL 11 5 08/06/20 26 Active gabapentin (Neurontin) 100 mg capsuleIndicatio ns:Chronic pain of right knee,Status post total right knee replacement,Tend onitis of knee, right Take 1 capsule (100 mg total) by mouth 2 (two) times a day. 60 each 2 5 Active meloxicam (MOBIC) 15 mg tabletIndication s:Chronic pain of right knee,Status post total right knee replacement,Tend onitis of knee, right Take 1 tablet (15 mg total) by mouth 1 (one) time each day. 15 tablet 09/25/202 5 Active lidocaine (Lidocaine Viscous) 2 % solutionIndicati ons:Gastroesopha geal reflux disease with esophagitis, unspecified whether hemorrhage Take 10 mL by mouth 1 (one) time each day if needed for mild pain. 100 mL 1 Active Active Problems Problem Noted Date Diagnosed Date Status post total right knee replacement 025 Post-traumatic osteoarthritis of left knee 08/13 Hypothyroid 08/11/2025 JEET (obstructive sleep apnea) 08/11/2025 HLD (hyperlipidemia) 02/25/2025 Depression 02/25/2025 GERD (gastroesophageal reflux disease) Assessment & Plan (02/25/2025 5:23 PM EDT): Stable. Continue omeprazole 20 mg twice daily. 40 mg in the evening as needed Carafate suspension as needed Ondansetron 4 mg as needed Orders: ondansetron (ZOFRAN) 4 mg tablet; Take 1 tablet (4 mg total) by mouth every 8 (eight) hours if needed for nausea or vomiting (PRN vomiting). sucralfate (CARAFATE) 100 mg/mL suspension; Take 10 mL (1 g total) by mouth 2 (two) times a day. Take 1 hour before meals and at bedtime Insomnia 02/25/2025 Diabetes mellitus 02/25/2025 Vertigo 02/25/2025 Encounters Date Type Department Care Team Description 08/27/2025 Telephone Gastroenterology - 299 [facility] 299 [facility] [address] [place] [address] Marielle Rasheed MD 08/13/2025 8:00 AM EDT Office Visit Orthopedic Surgery - [place] [address] [facility] [address] [place] [address] Flex Michael MD Chronic pain of right knee (Primary Dx); Status post total right knee replacement; Tendonitis of knee, right; Post-traumatic osteoarthritis of left knee from Last 3 Months Surgical History Surgery Date Site/Laterality Comments COLONOSCOPY 08/19/2021 - 09/18/2021 HP x1, rhoids (5yr due to Fhx polyps) ESOPHAGOGASTRODUODENOSCOPY 07/20/2016 - 08/18/2016 Unremarkable COLONOSCOPY 07/20/2016 - 08/18/2016 rhoids (5 yr/fam hx) TUBAL LIGATION KNEE SURGERY TOTAL KNEE ARTHROPLASTY Right SECTION, LOW TRANSVERSE Family History Medical History Relation Name Comments Colon polyps Brother 1 Colon polyps Brother 2 Crohn's disease Son Relation Name Status Comments Brother 1 Brother 2 Alive Son Social History Tobacco Use Types Packs/Day Years Used Date Smoking Tobacco: Never Smokeless Tobacco: Never Tobacco Cessation:Counseling Given: Not Answered Alcohol Use Standard Drinks/Week Comments Not Currently 0 (1 standard drink = 0.6 oz pur e alcohol) Comments Unknown Sex and Gender Information Value Date Recorded Sex Assigned at Not on file Legal Sex Female 4:33 PM EST Gender Identity Not on file Sexual Orientation Not on file Last Filed Vital Signs Vital Sign Reading Time Taken Comments Blood Pressure - - Pulse - - Temperature - - Respiratory Rate - - Oxygen Saturation - - Inhaled Oxygen Concentration - - Weight 85.3 kg (188 lb) 08/13/2025 8:11 AM EDT Height 154.9 cm (5' 1 ) 08/13/2025 8:11 AM EDT Body Mass Index 35.52 08/13/2025 8:11 AM EDT Plan of Treatment Upcoming Encounters Date Type Department Care Team (Late st Contact Info) Description 11/10/2025 2:00 PM EST Office Visit Orthopedic Surgery - [place] [address] [facility] [address] [place] [phone] Flex Michael MD 175 [facility] [address] [place] [address] 02/18/2026 1:00 PM EDT Consult Bariatric Surgery - [place] [address] [facility] [address] [place] [phone] Everardo Colbert MD [address] [place] [phone] 03/03/2026 2:00 PM EDT Office Visit Gastroenterology - 299 [facility] 299 [facility] [address] [place] [phone] Zayra Lynne PA 299 [facility] [address] [place] [address] Health Maintenance Due Date Last Done Comments Breast Cancer Screening 1955 Diabetes: Annual GFR (Glomerular Filtration Rate) 1955 Drug Screen 1955 Non-Opioid Controlled Substance Agreement 1955 Diabetes: Annual Foot Exam 1964 Diabetes: Annual Retina Eye Exam 1964 DTaP,Tdap,and Td Vaccines (1 - Tdap) 1973 Cholesterol Screening (Lipid Panel) 10/18/2022 Falls Risk Assessment 10/18/2022 Hepatitis C Screening 10/18/2022 Medicare Annual Wellness Visit 10/18/2022 Osteoporosis Screening (Bone Density Screening) 10/18/2022 Social Influencers of Health Screening 10/18/2022 Depression Screening 11/19/2024 Diabetes: Annual Urine Albumin-Creatinine Ratio (uACR) 02/26/2025 Diabetes: Blood Sugar Control Test (HGBA1C) 02/26/2025 COVID-19 Vaccine ( season) 2026 08/09/2025, 10/09/2024, 08/28/2023, Additional history exists RSV Immunization Adult Patients (1 - 1-dose 75+ series) 2029 Colorectal Cancer Screening: Colonoscopy 03/03/2035 03/03/2025 Pneumococcal Vaccine: 50+ Years Completed 09/30/2019, 09/30/2019 Zoster Vaccines Completed 07/15/2020, 10/03/2019 Influenza Vaccine Completed 07/22/2025, , 08/13/2023, Additional history exists HIB Vaccines Aged Out No longer eligi ble based on patient's age to complete this topic HPV Vaccines Aged Out No longer eligi ble based on patient's age to complete this topic Hepatitis A Vaccines Aged Out No long er eligible based on patient's age to complete this topic Hepatitis B Vaccines Aged Out No long er eligible based on patient's age to complete this topic IPV Vaccines Aged Out No longer eligi ble based on patient's age to complete this topic MMR Vaccines Aged Out No longer eligi ble based on patient's age to complete this topic Meningococcal ACWY Vaccine Aged Out N o longer eligible based on patient's age to complete this topic Meningococcal B Vaccine Aged Out No l onger eligible based on patient's age to complete this topic RSV Immunization Patients Under 20 months Aged Out No longer eligible based on patient's age to complete this topic Varicella Vaccines Aged Out No longer eligible based on patient's age to complete this topic Procedures Procedure Name Priority Date/Time Associated Diagnosis Comments COLONOSCOPY Routine 03/03/2025 10:26 AM EDT from Last 3 Months or Most Recently Relevant to Health Maintenance Results * COLONOSCOPY (03/03/2025 10:26 AM EDT) Anatomical Region Laterality Modality Endoscopy us Historical Provider GI~PROCEDURE ORDERABLES F inal Result from Last 3 Months or Most Recently Relevant to Health Maintenance Insurance MEDICARE [employer]) Care Teams Career Development Consultant Relationship Specialty Start Date End Date Marielle Price MD [address] [place] [phone] PCP - General Internal Medicine 02/25/25
--- OUTSIDE RECORDS SUMMARY | 2025-11-09 16:09 | XMS_ITS | Patient Health Record ---
Author Organization [facility] Address [address] [place] [address] Care Team Providers Care Ocean Fishing Guide Name Role Phone Marielle Price MD Primary Care Provider UnavailAshlie Thomas Unavailable [phone] Ade Wolf Unavailable [phone] Allergies Allergen (clinical drug ingredient) Drug/Non Drug Allergy documented on EMR Reaction Allergy Type Onset Date Status Novocain palpitations whe n used with epi for dental procedure Drug Allergy Active Reason For Referral No Information Medications Medication SIG (Take, Route, Frequency, Duration) Notes Start Date End Date Status Omeprazole Active Lactaid Active Ciclopirox Olamine 0.77 % 1 application Externally Twice a day; Duration: 30 days Active Zantac 300 MG Orally Not-Ta sienna Diclofenac Sodium 2.5 % as directed Exte rnally Twice a day as needed; Duration: 30 days 05/09/2024 Active Calcium Active Melatonin Not-Taking CeleXA 10 MG Orally Active Cephalexin 500 MG 1 tablet Orally Twic e a day; Duration: 10 day(s) Not-Taking Cephalexin 500 MG 1 capsule Orally charley ry 6 hrs; Duration: 5 day(s) Not-Taking Physical Therapy . . . 2-3x/week; Duration: 3-4 weeks Not-Taking Ambien 5 MG 1 tablet at bedtime Orally Once a day Not-Taking Multivitamins Active Levothyroxine Sodium Active Lipitor 20 MG 1 tablet Orally Once a day Active Ciclopirox Olamine 0.77 % 1 application to affected area Externally to feet Twice a day; Duration: 30 days Not-Taking [place]-3 Not-Taking PriLOSEC Not-Taking Mounjaro Not-Taking Dexilant 60 MG 1 capsule Orally Onc e a day Not-Taking Celecoxib 200 MG TAKE 1 CAPSULE BY MO [facility] DAILY; Duration: 30 Active Ciclopirox 0.77 % 1 application Externally Once a day; Duration: 30 days Active Ciclopirox Olamine 0.77 % 1 application to affected area Externally Twice a day to effected areas on feet; Duration: 30 days 05/27/2024 Active Night Splint AFO - L1930 as directed 05/27/2024 Active Farxiga 5 MG 1 tablet Orally Once a day Not-Taking Ciclopirox Olamine 0.77 % 1 application Externally Twice a day; Duration: 30 days Not-Taking Immunizations Vaccine Route Administration Date Status Comme nts Influenza Unknown 07/31/2023 Administered Social History Tobacco Use: Social History Observation Description Date Details (start date - stop date) Never Smoker NA - NA Tobacco Use/Smoking Question Answer Notes Are you a: nonsmoker Additional Findings: Tobacco Non-User Current no n-smoker Alcohol Screen Question Answer Notes Did you have a drink containing alcohol in the p ast year? No Points 0 Interpretation Negative Tobacco use other than smoking: Question Answer Notes Are you an other tobacco user? 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) Plantar fasciitis, bilateral (M72.2) Active confirmed Problem Skin ulcer of toe of right foot with fat layer exposed (L97.512) Active confirmed Problem Skin ulcer of toe of left foot with fat layer exposed (L97.522) Active confirmed Encounters Encounter Location Date Provider Diagnosis [facility] [address] [address] 09/25/2025 Ashlie Luis [facility] [address] [place] [address] 09/28/2025 Ashlie Luis Plan Of Treatment Pending Test Test Name Order Date X ray : Foot, left 3V 04/25/2024 X ray : Foot, right 3V 04/25/2024 43681-Wentixhh Plate 09/13/2011 10196-Utsmhktu Plate 08/06/2019 78255-Qjpqvzjw Plate 04/21/2020 77936-Wcpraxzd Plate 08/11/2020 31340-Opikyqzd Plate Each Additional 01/2020 14176-Pvlkkgtq Plate Each Additional [id number] 09/28/2021 12286-OWX 08/25/2020 46976- Debride <25 sq cm 09/29/2020 55480- Debride <25 sq cm 08/25/2020 [id number] SKIN/TISSUE 10/17/2021 39626-ZBBOZTY SKIN/TISSUE 09/11/2024 05671 I&D ABSCESS- SIMPLE,SINGLE 021 16534, A6208-RATCP/INJECT, JOINT/BURSA 1 12/09/201017870,Z7153-WXZ TENDON SHEATH/LIGAMENT 0 07/08/2024 Next Appt Details Provider Name:Ashlie Meyers inga, 03/26/2026 11:00:00 AM, [address] [address], [place], [address], Insurance Providers Payer Name Payer Address Payer Phone Subscriber Number Group Number Insured Name Patient Relationship to Insured Coverage Start Date Coverage End Date Medicare National Govt [facility] [address] [facility] [place] [place] [phone] [id number] Muriel Huggins Self - patient is the insured 9 [facility] [employer] Others [address] [place] [address] [phone] [id number] Muriel Huggins Self - patient is the insured Medical (General) History Medical History History ICD Code anemia Anxiety disorder Cholesterol reflux sleep apnea thyroid disorder Surgical History Surgery Date(Month/Year) knee surgery 2008 tubal ligation knee surgery, right 04/2018, 05/2019 Hospitalization History Reason Date(Month/Year) [facility] - Right knee replacement 05/2019
--- OUTSIDE RECORDS SUMMARY | 2025-11-09 16:09 | XMS_ITS | Patient Health Record ---
[facility] Address [address] [place] [address] Care Team Providers Care Equipment Installation Professional Name Role Phone Marielle Price Primary Care Provider CORINNE Luu Unavailable [phone] Allergies No Known Allergies Reason For Referral No Information Medications Medication SIG (Take, Route, Frequency, Duration) Notes Start Date End Date Status Atorvastatin Calcium 40 MG Tablet 1 tablet Orally Once a day Active Citalopram Hydrobromide 20 MG Tablet 1 tablet Orally Once a day Active Levothyroxine Sodium 75 MCG Tablet 1 tablet [...] Extended Release as directed Orally Activ e Ozempic (0.25 or 0.5 MG/DOSE) 2 MG/3ML Solution Pen-injector Inject 0.25 mg once weekly Subcutaneous; Duration: 28 days 08/07/2024 Active Meclizine HCl 25 MG Tablet 1 tablet as n eeded Orally every 12 hrs Not-Taking Simethicone 125 MG Tablet Chewable 1 tablet after meals and at bedtime as needed Orally Four times a day Not-Taking Social History Tobacco Use: Social History Observation Description Date Details (start date - stop date) Never Smoker NA - NA Social History Tobacco Use: Social Info Question Answer Notes Tobacco Use/Smoking Are you a nonsmoker Problems Problem Type SNOMED Code ICD Code Onset Dates Problem Status W/U Status Risk Notes Problem Obesity (557107769) Other obesit y (E66.8) Active confirmed Problem Hyperlipidaemia (94204193) Hyperlipidemia, unspecified hyperlipidemia type (E78.5) Active confirmed Problem Acquired hypothyroidism (619827235) Acquired hypothyroidism (E03.9) Active confirmed Problem Type II diabetes mellitus without complication (417578325) Type 2 diabetes mellitus without complication, without long-term current use of insulin (E11.9) Active confirmed Problem Obese class I (845504512529965) BMI 33.0-33.9,adult (Z68.33) Active confirmed Problem Mixed anxiety and depressive disorder (882534902) Depression with anxiety (F41.8) Active confirmed Problem Gastroesophageal reflux disease (952674532) GERD without esophagitis (K21.9) Active confirmed Plan Of Treatment No Information Insurance Providers Payer Name Payer Address Payer Phone Subscriber Number Group Number Insured Name Patient Relationship to Insured Coverage Start Date Coverage End Date Medicare Part B [id number] [address] [place] [address] [id number] Joseluis Muriel Self - patient is the insured [facility] [address] [place] [address] [id number] Muriel Huggins Self - patient is the insured Medical (General) History Medical History History ICD Code high cholesterol type II diabetes liver disease thyroid disease Arthritis anemia anxiety hearing loss seasonal allergies obstructive sleep apnea Hospitalization History Reason Date(Month/Year) right knew replacement 06/06/19
== END 2025-11-09 15:14 | disposition home or self-care (01) ==
LOC: HO.HMCC 12:56
PROVIDERS: PCP Internal Medicine; Visit Provider Internal Medicine
DX: E78.5 Hyperlipidemia, unspecified (principal); E03.9 Hypothyroidism, unspecified; E11.9 Type 2 diabetes mellitus without complications; I10 Essential (primary) hypertension

== ENCOUNTER → 2025-11-09 12:55 | Outpatient (BNVA) | payer MEDICARE, BC, SELFPAY | PROVIDERS: PCP Internal Medicine; Visit Provider Internal Medicine | DX: I10 Essential (primary) hypertension (principal); E78.5 Hyperlipidemia, unspecified; E03.9 Hypothyroidism, unspecified; E11.9 Type 2 diabetes mellitus without complications; Z79.899 Other long term (current) drug therapy | CPT/HCPCS: 99212 ==